=== PATIENT | male | born 1950 | race Caucasian/White ===

== ENCOUNTER 2016-12-29 07:36 | Day surgery (SDC) | payer MEDICARE, OTHER ==
--- NOTE | ~2016-12-29 | EGD ---
EGD REPORT [facility] [address] [place]. [address] NAME: FRANCISCO JAVIER RIVAS DC : 50 STATUS : REG [facility]#: [id number] AGE: 66 ADM/REG DATE : 12/29/16 MR#: [id number] REPORT SERV DATE: 12/29/16 DICTATED BY: CHI MATTHEWS DATE: 12/29/16 REPORT STATUS : Draft [facility]ANS[facility]ED [facility]: [facility] DATE: 12/29/16 Endoscopy Center Patient Name: Francisco Javier Rivas Date of : 1950 Attending MD: CHI MATTHEWS, Procedure Date No Time: 12/29/2016 Procedure: Colonoscopy Indications: Screening for colorectal malignant neoplasm Referring MD: CHERIE IRAHETA MD Medicines: Monitored Anesthesia Care Complications: No immediate complications. Estimated blood loss: None. Procedure: Pre-Anesthesia Assessment: - ASA Grade Assessment: II - A patient with mild systemic disease. After I obtained informed consent, the scope was passed under direct vision. Throughout the procedure, the patient's blood pressure, pulse, and oxygen saturations were monitored continuously. The CF [id number] was introduced through the anus and advanced to the cecum, identified by appendiceal orifice and ileocecal valve. The colonoscopy was performed without difficulty. The patient tolerated the procedure well. The quality of the bowel preparation was good. Findings: The perianal and digital rectal examinations were normal. A sessile polyp was found in the transverse colon. The polyp was 3 mm in size. The polyp was removed with a cold biopsy forceps. Resection and retrieval were complete. Verification of patient identification for the specimen was done. Estimated blood loss was minimal. A few small-mouthed diverticula were found in the sigmoid colon. Internal hemorrhoids were found during retroflexion and were Grade II (internal hemorrhoids that prolapse but reduce spontaneously). The exam was otherwise without abnormality on direct and retroflexion views. Impression: - One 3 mm polyp in the transverse colon. Resected and retrieved. - Diverticulosis in the sigmoid colon. - Internal hemorrhoids. - The examination was otherwise normal on direct and retroflexion views. Recommendation: - Patient has a contact number available for emergencies. The signs and symptoms of potential delayed EGD REPORT [address] [place]. [address] NAME: FRANCISCO JAVIER RIVAS HORTENCIA : 50 STATUS : REG [facility] PAT#: [id number] AGE: 66 ADM/REG DATE : 12/29/16 MR#: [id number] REPORT SERV DATE: 12/29/16 DICTATED BY: CHI MATTHEWS DATE: 12/29/16 REPORT STATUS : Draft TRANSCRIBED BY: [facility] DATE: 12/29/16 complications were discussed with the patient. Return to normal activities tomorrow. Written discharge instructions were provided to the patient. - Return to previous diet. - Continue present medications. - Await pathology results. - Repeat colonoscopy for surveillance based on pathology results. Procedure Code(s): --- Professional --- 00168, Colonoscopy, flexible, proximal to splenic flexure; with biopsy, single or multiple Diagnosis Code(s): --- Professional --- D12.3, Benign neoplasm of transverse colon K64.1, Second degree hemorrhoids K57.30, Diverticulosis of large intestine without perforation or abscess without bleeding Z12.11, Encounter for screening for malignant neoplasm of colon CPT copyright 2013 [employer]. All rights reserved. The codes documented in this report are preliminary and upon resident director review may be revised to meet current compliance requirements. CHI MATTHEWS, 12/29/2016 9:32 AM Number of Addenda: 0 Note Initiated On: 12/29/2016 8:29 AM Scope Withdrawal Time 0 hours 9 minutes 13 seconds [id number] [id number]
--- NOTE | ~2016-12-29 | EGD ---
EGD REPORT [facility] [address] [place]. [address] NAME: FRANCISCO JAVIER RIVAS DC : 50 STATUS : REG [facility]#: [id number] AGE: 66 ADM/REG DATE : 12/29/16 MR#: [id number] REPORT SERV DATE: 12/29/16 DICTATED BY: CHI MATTHEWS DATE: 12/29/16 REPORT STATUS : Draft TRANSCRIBED BY: [facility] DATE: 12/29/16 Endoscopy Center Patient Name: Francisco Javier Rivas Date of : 1950 Attending MD: CHI MATTHEWS, Procedure Date No Time: 12/29/2016 Procedure: Upper EUS Indications: Suspected solid pancreatic neoplasm Referring MD: CHERIE IRAHETA MD Medicines: Monitored Anesthesia Care Complications: No immediate complications. Estimated blood loss: None. Procedure: Pre-Anesthesia Assessment: - ASA Grade Assessment: II - A patient with mild systemic disease. After obtaining informed consent, the endoscope was passed under direct vision. Throughout the procedure, the patient's blood pressure, pulse, and oxygen saturations were monitored continuously. The GIF [id number] was introduced through the mouth, and advanced to the second part of duodenum. The Endoscope was introduced through the and advanced to the. After obtaining informed consent, the endoscope was passed under direct vision. Throughout the procedure, the patient's blood pressure, pulse, and oxygen saturations were monitored continuously.The upper GI endoscopy was accomplished without difficulty. The patient tolerated the procedure well. Findings: Endoscopic Finding : The examined esophagus was endoscopically normal. Patchy moderate inflammation characterized by erosions and erythema was found in the entire examined stomach. Biopsies were taken with a cold forceps for histology. Verification of patient identification for the specimen was done. Estimated blood loss was minimal. The cardia and gastric fundus were normal on retroflexion. The examined duodenum was normal. Biopsies were taken with a cold forceps for histology. Verification of patient identification for the specimen was done. Estimated blood loss was minimal. Endosonographic Finding : Pancreatic parenchymal abnormalities were noted in the entire pancreas. These consisted of lobularity. The pancreatic duct had a normal endosonographic appearance in the entire pancreas. The pancreatic duct measured up to 2 mm in diameter. There was no sign of significant endosonographic abnormality in the EGD REPORT [address] [address] NAME: FRANCISCO JAVIER RIVAS HORTENCIA : 50 STATUS : REG [facility] PAT#: [id number] AGE: 66 ADM/REG DATE : 12/29/16 MR#: [id number] REPORT SERV DATE: 12/29/16 DICTATED BY: CHI MATTHEWS DATE: 12/29/16 REPORT STATUS : Draft TRANSCRIBED BY: [employer] DATE: 12/29/16 common bile duct. Endosonographic imaging of the pancreas showed no cyst/pseudocyst and no mass. There was no sign of significant endosonographic abnormality in the examined duodenum. Endosonographic images of the stomach were unremarkable. There was no sign of significant endosonographic abnormality in the esophagus. Impression: - Normal esophagus. - Gastritis. Biopsied. - Normal examined duodenum. Biopsied. - Pancreatic parenchymal abnormalities consisting of lobularity were noted in the entire pancreas. - The pancreatic duct had a normal endosonographic appearance in the entire pancreas. The pancreatic duct measured up to 2 mm in diameter. - There was no sign of significant pathology in the common bile duct. - There was no sign of significant pathology in the examined duodenum. - Endosonographic images of the stomach were unremarkable. - There was no sign of significant pathology in the esophagus. Recommendation: - Return to previous diet. - Continue present medications. - Await path results. Procedure Code(s): --- Professional --- 95290, Esophagogastroduodenoscopy, flexible, transoral; with endoscopic ultrasound examination, including the esophagus, stomach, and either the duodenum or a surgically altered stomach where the jejunum is examined distal to the anastomosis Diagnosis Code(s): --- Professional --- K29.70, Gastritis, unspecified, without bleeding K86.9, Disease of pancreas, unspecified CPT copyright 2013 [employer]. All rights reserved. The codes documented in this report are preliminary and upon room service runner review may be revised to meet current compliance requirements. Attending Participation: EGD REPORT [facility] [address] [address] NAME: FRNACISCO JAVIER RIVAS HORTENCIA : 50 STATUS : REG [facility] [place] PAT#: [id number] AGE: 66 ADM/REG DATE : 12/29/16 MR#: [id number] REPORT SERV DATE: 12/29/16 DICTATED BY: CHI MATTHEWS DATE: 12/29/16 REPORT STATUS : Draft TRANSCRIBED BY: [employer] DATE: 12/29/16 I personally performed the entire procedure. CHI MATTHEWS, 12/29/2016 9:35 AM Number of Addenda: 0 Note Initiated On: 12/29/2016 8:30 AM Scope Withdrawal Time 0 hours 0 minutes 0 seconds [id number] [id number]
[~2016-12-29 07:36] MED LIST: ADVIL PO; AMIT10 PO; MCZ125 PO
== END 2016-12-29 23:59 | disposition home or self-care (01) ==
LOC: DMU 07:36
PROVIDERS: Internal Medicine Gastroenterology
PROC: 0DB98ZX Excision of Duodenum, Via Natural or Artificial Opening Endoscopic, Diagnostic (ICD-10-PCS; 2016-12-29)
PROC: 0DBL8ZZ Excision of Transverse Colon, Via Natural or Artificial Opening Endoscopic (ICD-10-PCS; 2016-12-29)
PROC: 0DJ08ZZ Inspection of Upper Intestinal Tract, Via Natural or Artificial Opening Endoscopic (ICD-10-PCS; principal; 2016-12-29 09:00)
PROC: 0DB68ZX Excision of Stomach, Via Natural or Artificial Opening Endoscopic, Diagnostic (ICD-10-PCS; 2016-12-29 09:00)
DX: Z12.11 Encounter for screening for malignant neoplasm of colon (principal); D12.3 Benign neoplasm of transverse colon; K29.50 Unspecified chronic gastritis without bleeding; K86.9 Disease of pancreas, unspecified; K57.30 Diverticulosis of large intestine without perforation or abscess without bleeding; K64.1 Second degree hemorrhoids; K22.4 Dyskinesia of esophagus; Z88.2 Allergy status to sulfonamides; Z90.49 Acquired absence of other specified parts of digestive tract; Z79.899 Other long term (current) drug therapy; Z98.890 Other specified postprocedural states
CPT/HCPCS: 88305; 88342; C1725

== ENCOUNTER 2017-01-09 15:23 | Inpatient (IN) | payer MEDICARE, OTHER ==
--- NOTE | ~2017-01-09 | OP ---
Record Of Operation [facility] [address] [place]. [address] NAME: FRANCISCO JAVIER RIVAS : [birth year] STATUS : ADM IN [facility]#: [id number] AGE: 66 ADM/REG DATE : 01/09/17 MR#: [id number] REPORT SERV DATE: 01/15/17 DICTATED BY: ALEXIA SHELBY DATE: 01/13/17 REPORT STATUS : Draft TRANSCRIBED BY: ELLEN DATE: 01/13/17 DATE OF PROCEDURE: 01/13/2017 OPERATION COMPLETED: Extraction of tooth #30. PREOPERATIVE DIAGNOSIS: Periodontal disease and periapical pathology. POSTOPERATIVE DIAGNOSIS: Periodontal disease and periapical pathology. ANESTHESIA: MAC anesthesia with local. SURGICAL PROCEDURE: the patient was taken to the operating room, where successful general anesthesia was induced via MAC IV sedation. We started the procedure by injecting the surgical site with 2% Xylocaine with Epinephrine and 4% Septocaine with epinephrine. This was to larriman helper in comfort during the procedure and postoperative discomfort when the patient was awake. The attention was directed to tooth #30 in the lower right mandible, where a #9 Molt periosteal elevator was used to reflect the gingival attachment to tooth #30. Due to the bone loss and periodontal disease in the furcation of the tooth, this tooth was easily removed with the cowhorn forceps. No sutures were necessary for the mucosa. With that in mind, the previously placed pharyngeal pack was removed and the posterior pharynx was suctioned and noted to be free of debris. The patient was then awakened and taken to the recovery room. JIA/ELLEN Alexia Shelby D.D.S. / [id number] CC: DO Millicent Chang M.D.
--- NOTE | ~2017-01-09 | TEE ---
Transesophageal Echocardiogram [facility] [address] [place]. [address] NAME: FRANCISCO JAVIER RIVAS : [birth year] STATUS : ADM IN PAT#: [id number] AGE: 66 ADM/REG DATE : 01/09/17 MR#: [id number] REPORT SERV DATE: 01/11/17 DICTATED BY: RYAN MARIEE DATE: 01/11/17 REPORT STATUS : Draft TRANSCRIBED BY: MODL DATE: 01/11/17 This is a 66-year-old gentleman with strep bacteremia for evaluation of endocarditis. Abnormal transthoracic echo with mitral valve pathology also noted. The risks and benefits of SUAD explained to the patient. He agreed to proceed. The patient was sedated with propofol per Anesthesia. He was intubated without difficulties. Vital signs were closely monitored during procedure and remained stable. FINDINGS: 1. Mobile complex echodensity in the left atrium up to 1 cm in the long axis, which is attached to the root of anterior mitral valve leaflet resembling vegetation noted. 2. Sclerotic diseased posterior mitral valve leaflet prolapsing to the left atrium with what looks like to be unsupported P2 segment. Due to the echo bright density, it may represent older process. There is moderate mitral valve regurgitation. There is a predominantly anteriorly directed jet. No reversal. There is also a separate jet of mitral valve regurgitation noted. Mobile echodensity on disease P2 segment vegetation cannot be excluded. Multiple images obtained including 3D. Clearly, the freely mobile complex echodensity in the root of the anterior mitral valve leaflet is acute or subacute and represents likely vegetation. 3. Normal LV size with normal systolic function. Estimated ejection fraction 50%. 4. Normal RV size and systolic function. 5. Aortic valve opens adequately. 6. There is a small echodensity attached to the right aortic cusp likely representing Lambl excrescence, but early sign of vegetation cannot be excluded. There is mild aortic valve regurgitation. 7. Tricuspid valve opens adequately. Trace tricuspid valve regurgitation. No obvious mobile echodensity identified. 8. Pulmonary valve opens adequately without significant regurgitation. 9. No evidence of left atrial or left atrial appendage thrombus. Normal left atrial appendage outflow velocities. 10.Normally connected pulmonary veins. 11.No evidence of pericardial effusion. CONCLUSION: 1. COMPLEX MOBILE ECHODENSITY MEASURING UP TO 1 CM IN THE LONG AXIS AT THE ROOT OF ANTERIOR MITRAL VALVE LEAFLETS ON THE ATRIAL SIDE RESEMBLING VEGETATION. 2. SEVERELY DISEASED PROLAPSING POSTERIOR MITRAL VALVE LEAFLET WITH UNSUPPORTED P2 SEGMENT. MOBILE ECHODENSITY ON THE DISEASED P2 SEGMENT CANNOT BE EXCLUDED. THERE IS MODERATE MITRAL VALVE REGURGITATION WITH ECCENTRIC JET PREDOMINANTLY ANTERIORLY DIRECTED WITHOUT SIGNS OF REVERSAL. 3. NORMAL LEFT VENTRICULAR SIZE AND SYSTOLIC FUNCTION. 4. VERY SMALL ECHODENSITY ON THE RIGHT AORTIC CORONARY CUSP, POSSIBLY RESEMBLING LAMBL EXCRESCENCE, BUT EARLY VEGETATION CANNOT BE EXCLUDED WITH MILD AORTIC VALVE REGURGITATION. 5. FINDINGS COMMUNICATED TO DR. HERNANDEZ. Transesophageal Echocardiogram [address] [address] NAME: FRANCISCO JAVIER RIVAS : 50 STATUS : [facility]M [facility]#: [id number] AGE: 66 ADM/REG DATE : 01/09/17 MR#: [id number] REPORT SERV DATE: 01/11/17 DICTATED BY: RYAN MARIEE DATE: 01/11/17 REPORT STATUS : Draft TRANSCRIBED BY: ELLEN DATE: 01/11/17 DIXIE/ELLEN Ryan Mariee M.D. / [id number] CC: DO Millicent Chang M.D.
--- NOTE | ~2017-01-09 | CN ---
Consultation Report [facility] [address] [place]. [address] NAME: FRANCISCO JAVIER RIVSA : 50 STATUS : ADM IN PAT#: [id number] AGE: 66 ADM/REG DATE : 01/09/17 MR#: [id number] REPORT SERV DATE: 01/11/17 DICTATED BY: ROSCOE CASTRO DATE: 01/11/17 REPORT STATUS : Draft TRANSCRIBED BY: MODKesha DATE: 01/11/17 DATE OF CONSULTATION: REASON FOR CONSULTATION: Endocarditis. 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 Upon discussing with the patient, he tells me that in 2015 he had a 5-month stretch of coughing of unclear etiology that eventually stopped but then restarted in September. He felt like a trigger point in his throat, sometimes irritated by piece of food. He would cough so hard that he would vomit sometimes. He was referred to the [facility] where he was recommended Elavil for esophageal spasms. He also lost weight over the last several months. Initially, he noticed no taste for certain meats like chicken and beef and then no taste for bread. He fractured a tooth at one point and he thinks it got infected. His dentist, Dr. Feliciano, gave him a round of azithromycin like a Z-Sesar in early November and then again just before this admission. He was told he needs a root canal done, but that could not be scheduled until the end of January. He has had fatigue, but no shortness of breath. No body swelling. He was noted to have anemia and was referred to GI and audiovisual librarian. A CT scan showed some dilatation of the pancreatic duct. So, on the 12/29, he had EGD and colonoscopy. EGD included pancreatic biopsy. There is some evidence of gastritis and maybe some lobularity of the pancreas, but the pancreatic duct looked normal by ultrasound. The colonoscopy showed internal hemorrhoids and a polyp. He also had some other lab work including iron studies and some malignancy markers. He thinks he has had low-grade fever for several weeks in the range of 99.9 and 100. He reports no recent injections or skin lesions. No rashes. No wounds. He has no shortness of breath. He does have problems with constipation. He went to the emergency room initially on the 01/07 and blood cultures were done. When they came positive for gram-positive cocci, the patient was called back and was admitted two days ago. Repeat blood cultures on the also are positive, at least one of them is. The Lab tells the preliminary data indicated this is a Streptococcus viridans, but the antibiogram is not back. The patient was started on vancomycin and Rocephin. A transthoracic echocardiogram suggested a mitral valve vegetation and eccentric mitral regurgitation, so today, he had a transesophageal echocardiogram. The preliminary report indicates 1 cm mobile echodensity in the left atrium in close proximity to anterior mitral valve leaflet that resembles a vegetation. There is also severely sclerotic posterior mitral valve leaflet and moderate eccentric mitral regurgitation. The patient tells me that Dr. Downey, his PCP, thought he had mitral valve prolapse, but he thinks that was based on auscultation. Also while here in the hospital, he had a CT scan of the brain without contrast that showed maybe some old vascular insult, and CT of the chest, abdomen, and jaws with contrast. There was no obvious dental infection. There may be some old splenic infarcts. 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 Consultation Report [address] [place]. [address] NAME: FRANCISCO JAVIER RIVAS : 50 STATUS : ADM IN [facility]#: [id number] AGE: 66 ADM/REG DATE : 01/09/17 MR#: [id number] REPORT SERV DATE: 01/11/17 DICTATED BY: ROSCOE CASTRO DATE: 01/11/17 REPORT STATUS : Draft TRANSCRIBED BY: MODKesha DATE: 01/11/17 The patient has been afebrile here. Lab work shows a creatinine of 0.5, WBC is 6, hemoglobin 9, platelets 280. Liver enzymes not elevated. CEA and CPK not elevated. Influenza screen negative. Pneumococcal and Legionella antigen negative. ID consult for antibiotics. I discussed with Dr. Castro, Cardiology, who feels no immediate valvular surgery is needed. PAST MEDICAL HISTORY: As I mentioned above plus cholecystectomy right inguinal hernia surgery, remote left hand surgery. He has not received influenza or pneumococcal vaccines. He reports no history of TB, HIV, hepatitis, or STDs. FAMILY HISTORY: Hypertension. ALLERGIES: SULFA CAUSES ITCHING. SOCIAL HISTORY: He works as a chiropractor. He does not smoke. He does not use IV drugs. MEDICATIONS ON ADMISSION: Elavil, azithromycin, chlorpheniramine with phenylephrine with acetaminophen p.r.n. tablets, omeprazole p.r.n. PHYSICAL EXAMINATION: GENERAL: He is alert, awake. HEENT: I did not see oral mucosal lesions. Sclerae are white. Hands and feet without signs of emboli. He reports no acute spine or joint pains. No obvious joint swelling. LUNGS: Clear to auscultation. No wheezes, rhonchi, or rales. HEART: Regular rhythm with a very loud systolic murmur about 4/6 at the precordial area and about 2 to 3/6 at the right sternal border. Also loud at the left axillary area. ABDOMEN: Soft, nontender to palpation. Extremities: Lower legs without edema. INVESTIGATIONS: As mentioned above. 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 Antibiotic-garg, we will follow up antibiogram to see if this is sensitive to penicillin or ceftriaxone. A typical treatment would include 4 weeks course of penicillin or ceftriaxone or two weeks course of penicillin or ceftriaxone plus synergistic gentamicin. Obviously, we need to make sure that his dental problems are dressed since that could be a source of infection and he will need close followup with Cardiology for the valvular function. I discussed the above with the patient. He had the opportunity to ask questions. VELIA/ELLEN Consultation Report [address] [place]. [address] NAME: FRANCISCO JAVIER RIVAS : 50 STATUS : ADM IN PAT#: [id number] AGE: 66 ADM/REG DATE : 01/09/17 MR#: [id number] REPORT SERV DATE: 01/11/17 DICTATED BY: ROSCOE CASTRO DATE: 01/11/17 REPORT STATUS : Draft TRANSCRIBED BY: ELLEN DATE: 01/11/17 Roscoe Castro M.D. / [id number] CC: DO Millicent Chang M.D.
--- NOTE | ~2017-01-09 | IDS ---
Interim Discharge Summary [facility] [address] [place]. [address] NAME: FRANCISCO JAVIER RIVAS : 50 STATUS : ADM IN PAT#: [id number] AGE: 66 ADM/REG DATE : 01/09/17 MR#: [id number] REPORT SERV DATE: 01/23/17 DICTATED BY: SERAFIN MERRITT DATE: 01/22/17 REPORT STATUS : Draft TRANSCRIBED BY: MODL DATE: 01/22/17 ADMISSION DATE: 01/09/2017 DISCHARGE DATE: DIAGNOSES: Diagnoses on this patient so far include the followin. Acute endocarditis and bacteremia with Streptococcus salivarius secondary to gingivitis and dental abscess unfortunately. The patient has been receiving IV Rocephin for this and today is day #13. ID is following and the plan is to complete a course of four weeks of IV Rocephin therapy on this patient. Hence, he has received a PICC line placement for this. 2. Mitral valve endocarditis and coronary artery disease which necessitated coronary artery bypass graft and also mitral valve replacement at the same time successfully on this patient, today is postop day #4. The patient is on anticoagulation with Coumadin as of now. 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 The patient also had problems like chronic diffuse esophageal spasm in the past, history of chronic gastritis, and history of colonic polyps which were benign in the past. BRIEF HOSPITAL COURSE: Please refer to my interim discharge summary dictated previous to this. Between then and now, the patient did extremely well after CABG and mitral valve replacement. This patient, however, complained of dizziness and instability of gait which has occurred in the recent past. For this, I obtained an MRI of the patient that shows old strokes in the left basal ganglia, right frontal lobe, and corpus callosum which may be partly responsible for this in addition to the acute endocarditis that the patient is having. In addition to this, the patient also is chronically malnourished as he has not been eating much at all for the last month or more given the fact that he had acute to subacute endocarditis at this time. The patient also had hallucinations when he came in, but I do not see any history of any psychiatric illness in this patient. Hence, the hallucinations were probably secondary to the sepsis and the bacteremia from the Streptococcus itself. However, given all these problems, the patient is being evaluated by Physical Therapy and Occupation Therapy, so he can be placed in inpatient rehab for some time before releasing him to go on back home. Another reason for this also is that he needs to complete his total of four weeks of IV Rocephin therapy through his PICC line. For all this, if the patient can be placed in an inpatient rehab of the patient's choice, later on the patient can be released to go on home. 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 The patient has a very supportive family and the discussion has been ongoing with him along with his and son also who are actively involved in the patient's care. This is my interim discharge summary and this patient will be followed by my colleague on 01/23/2017. Interim Discharge Summary [address] [address] NAME: FRANCISCO JAVIER RIVAS : 50 STATUS : ADM IN PAT#: [id number] AGE: 66 ADM/REG DATE : 01/09/17 MR#: [id number] REPORT SERV DATE: 01/23/17 DICTATED BY: SERAFIN MERRITT DATE: 01/22/17 REPORT STATUS : Draft TRANSCRIBED BY: ELLEN DATE: 01/22/17 DENNY/ELLEN Serafin Merritt M.D. / [id number] CC: Teresita Hernandez M.D.
--- NOTE | ~2017-01-09 | HP ---
History And Physical [address] [place]. [address] NAME: FRANCISCO JAVIER RIVAS : 50 STATUS : ADM IN [facility]#: [id number] AGE: 66 ADM/REG DATE : 01/09/17 MR#: [id number] REPORT SERV DATE: 01/09/17 DICTATED BY: KODY LOVE DATE: 01/09/17 REPORT STATUS : Draft TRANSCRIBED BY: MODL DATE: 01/09/17 DATE OF ADMISSION: 01/09/2017 REASON FOR ADMISSION: 2/[address] Downey' office, PCP. PRESS CUTTER: Dr. Hernandez. Saw Dr. Benton for an endoscopic ultrasound. HISTORY OF PRESENT ILLNESS: This is a pleasant 66-year-old male with known history of suspected clinical diffuse esophageal spasm causing recurrent cough per patient. Known history of gastritis, pancreatic lobularity seen via endoscopic ultrasound with a normal pancreatic biliary duct profile, known history of diverticulosis, 3 mm polyp in the transverse colon, this was resected and retrieved. Pathology just showed tubular adenoma without high-grade dysplasia. Known stomach biopsy antral fundic mucosa, moderate chronic focally active gastritis. No dysplasia or metaplasia. SURGICAL HISTORY: The patient with known surgical history of cholecystectomy, right inguinal hernia repair, and left hand surgery. The patient comes in to the ER on Sunday with being "incoherent", only lasted for a day. No fevers. No chills. No nausea. No vomiting or diarrhea. In fact, he is constipated, been so for several months. No chest pain. No chest pressure. No shortness of breath. Very mild very mild productive cough recently, started on 09/07. Dr. Downey sent the patient to Dr. Hernandez documented to have diffuse esophageal spasm. The patient was recently evaluated in September as well for having a right lower molar infection requiring a root canal, still holding off on the root canal, unclear reasons. The patient came into the ER. Apparent chest x-ray did not show any infiltrate. The patient was discharged, recent Z-Sesar, is now on day 2, has not noted any change in improvement, called here 2/2 bacteremia which shows gram-positive cocci in chains, possibly strep rule out. I am concerned about possible enterococci as well. Known to have a biopsy of the transverse colon. REVIEW OF SYSTEMS: Done, see HPI. Otherwise, negative. PAST MEDICAL HISTORY: See above. PAST SURGICAL HISTORY: See above. ALLERGIES: SULFA, ITCHING. HOME MEDICATIONS: See MAR. We will continue what is relevant. SOCIAL HISTORY: He is a practising chiropractor. No alcohol. No drug use. No asbestos History And Physical [address] [address] NAME: FRANCISCO JAVIER RIVAS : 50 STATUS : ADM IN [facility]#: [id number] AGE: 66 ADM/REG DATE : 01/09/17 MR#: [id number] REPORT SERV DATE: 01/09/17 DICTATED BY: KODY LOVE DATE: 01/09/17 REPORT STATUS : Draft TRANSCRIBED BY: ELLEN DATE: 01/09/17 exposure. No radioiodine exposure. No smoking exposure per the patient. FAMILY HISTORY: Hypertension in at least one parent. PHYSICAL EXAMINATION: OBJECTIVE: VITAL SIGNS: 116 pulse, 96% room air, 157/78 blood pressure, 98.1 temperature, and 18 respirations. General: No acute distress. HEENT: PERRLA. No scleral icterus. CARDIOVASCULAR: Regular rate and rhythm. No murmur. RESPIRATORY: Clear, but decreased breath sounds bibasilarly. ABDOMEN: nontender, nondistended. Positive bowel sounds. There were very hypoactive bowel sounds. EXTREMITIES: No edema. No ecchymosis. NEUROLOGIC: GCS 15. A and O x4/4. LABS: Are all pending. ASSESSMENT AND PLAN: 1. Sepsis. 2. Bacteremia 2/2. 3. Source is possibly pneumonia given recurrent cough versus right molar abscess, rule out infective endocarditis seeding. The patient is not especially toxic but yet has bacteremia with tooth infection. 4. Constipation times months. PLAN: We will go ahead and admit this patient. IV vancomycin, Rocephin after panculture. Stat creatinine, then we will give hopeful IV contrast. A CT maxillofacial, chest. Rule out retrocardiac pneumonia and abdomen and pelvis. Get a CA19-9 given the pancreatic lobularity concern. If I cannot find an overt source, we will ask for ID. We will look at the transthoracic. Index of suspicion is high for endocarditis. The patient has recurrent blood cultures being positive. We will consider possible SUAD with ID consult. Speech eval for this suspected dysphagia risk. Consult maxillofacial surgery. Possible root canal prospect. Place on Florastor to reduce the risk of C. diff. See rest of my orders. We will get a CT of the brain in case the patient has any septic embolus to the brain. All questions were answered. It took over 60 minutes to do. Reference Keypr and DEMANDIT. WST/MODL Kody Love DO History And Physical [address] [address] NAME: FRANCISCO JAVIER RIVAS : 50 STATUS : ADM IN PAT#: [id number] AGE: 66 ADM/REG DATE : 01/09/17 MR#: [id number] REPORT SERV DATE: 01/09/17 DICTATED BY: KODY LOVE DATE: 01/09/17 REPORT STATUS : Draft TRANSCRIBED BY: MODL DATE: 01/09/17 / [id number] CC: DO Millicent Chang M.D.
--- NOTE | ~2017-01-09 | CN ---
Consultation Report [facility] [address] [place]. [address] NAME: FRANCISCO JAVIER RIVAS : 50 STATUS : ADM IN [facility]#: [id number] AGE: 66 ADM/REG DATE : 01/09/17 MR#: [id number] REPORT SERV DATE: 01/10/17 DICTATED BY: NORBERT CASTRO DATE: 01/10/17 REPORT STATUS : Draft TRANSCRIBED BY: MODL DATE: 01/10/17 CARDIOLOGY CONSULTATION DATE OF CONSULTATION: INDICATION: Abnormal echo, bacteremia. 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, who has felt unwell for several months on confirming history with family. He has lost probably 30 pounds over the last three to four months. He has had some malaise, chronic cough, fatigue, and weakness. He was admitted with bacteremia after being seen in the emergency room with what was felt to be dehydration. He has 4/4 blood cultures positive for strep. He had an echocardiogram today that showed EF of 50% with a flail P2 segment and densities possibly consistent with mitral valve vegetations and the MR is highly eccentric and is possibly severe. The patient reports he is feeling better than on admission. He has not had syncope. No lalito shortness of breath or chest pain. No orthopnea or PND. No active heart failure symptoms. BNP on presentation was 69. PAST MEDICAL HISTORY: Chronic weight loss as described above. ALLERGIES: SULFA ANTIBIOTICS. PRESENT MEDICATIONS: Amitriptyline, Rocephin, subcu heparin, metoprolol tartrate, and vancomycin. SOCIAL HISTORY: No present smoking. FAMILY HISTORY: Reviewed. Notable for mother who had endocarditis. REVIEW OF SYSTEMS: As per the HPI. Otherwise, all other review of systems negative. PHYSICAL EXAMINATION: VITAL SIGNS: Blood pressure 115/70, pulse is 91, and respiratory rate is 18. GENERAL: Appears stated age, no distress. EYES: Sclerae anicteric, no arcus senilis. MOUTH: Oral mucosa moist, lips acyanotic. NECK: Jugular venous pressure normal, no carotid bruits. LUNGS: Clear to auscultation bilaterally, normal inspiratory effort. CARDIAC: Regular rhythm with a 3/6 systolic murmur at the apex consistent with mitral regurgitation. ABDOMEN: Soft, nondistended, nontender. EXTREMITIES: No edema. SKIN: Warm and dry. Consultation Report [facility] [facility] [address] [place]. [address] NAME: FRANCISCO JAVIER RIVAS : 50 STATUS : ADM IN PAT#: [id number] AGE: 66 ADM/REG DATE : 01/09/17 MR#: [id number] REPORT SERV DATE: 01/10/17 DICTATED BY: NORBERT CASTRO DATE: 01/10/17 REPORT STATUS : Draft TRANSCRIBED BY: MODL DATE: 01/10/17 NEURO/PSYCH: Alert and oriented, nonfocal, mood appropriate. LABORATORY AND DIAGNOSTIC STUDIES: Telemetry is sinus rhythm to sinus tachycardia. ECG from presentation was sinus tachycardia with inferior ST depression, otherwise diffuse upsloping ST elevation. IMPRESSIONS: Suspect bacterial endocarditis/infective endocarditis with mitral regurgitation, weight loss, malaise, possible vegetations, and bacteremia. ID evaluation is pending. The patient is currently on antibiotics. We will obtain SUAD to assess mitral valve, and the patient may need eventual mitral valve surgery. Discussed diagnosis with the patient and family in depth. Discussed SUAD procedure with the patient and family. All questions were answered. They are agreeable to proceeding. JHOANA/ELLEN Norbert Castro M.D. / [id number] CC: DO Millicent Chang M.D.
--- NOTE | ~2017-01-09 | CN ---
Consultation Report [facility] [address] [place]. [address] NAME: FRANCISCO JAVIER RIVAS : 50 STATUS : ADM IN PAT#: [id number] AGE: 66 ADM/REG DATE : 01/09/17 MR#: [id number] REPORT SERV DATE: 01/12/17 DICTATED BY: FRANK MCKEON DATE: 01/12/17 REPORT STATUS : Draft TRANSCRIBED BY: MODKesha DATE: 01/12/17 CONSULTATION REPORT DATE OF CONSULTATION: REASON FOR CONSULTATION: Mitral valve endocarditis, consideration for mitral valve replacement. CHIEF COMPLAINT: Fatigue, weakness, and cough. 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 He reports that in September, he had onset of dry nonproductive cough and some malaise, fatigue, and weight loss. He in fact, lost approximately 23 pounds from September until he weighed himself in October. He continued to lose weight and had increasing fatigued and went to see his primary care physician, Dr. Downey. He was found to have a mild anemia. He was referred for ENT, pulmonary, GI, and oncology evaluations. It was felt that, he might have a gastritis and esophageal spasm that was responsible for his cough, and/or possibly sinusitis with drainage or potentially cold-induced asthma. Most recently, he was driving and apparently became confused and his directed him to the hospital. He came to the ER with confusion, was found to have temperature elevation of 100.1, as well as dehydration. He was rehydrated, and as part of his diagnostic workup, had blood cultures drawn. He was discharged to home, and was called back to the hospital after two out two cultures were positive for gram- positive cocci. Ultimately, this was found to be Streptococcus species, and sensitivity is currently pending. He was hospitalized, underwent further evaluation with transthoracic and transesophageal echocardiography, which demonstrated a significant mobile vegetation in the left atrium that originated from the posterior leaflet of the mitral valve. There was posterior leaflet prolapse and moderate mitral valve regurgitation with a predominantly anteriorly directed jet. There was also a separate jet of mitral valve regurgitation noted. 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 The patient denies any family history of coronary disease, although mother had mitral valve replacement. He denies any history of hypertension, hyperlipidemia, prior heart problems, syncope, or near-syncope. He denies any chest discomfort such as pressure tightness or heaviness. Denies any neck, back, shoulder, arm discomfort. He initially denies any fevers or shaking chills, but his daughter reminds him that he did have shaking chills over a month ago, when she observed him at dinner time. He also had attributed these chills to his anemia. He reports that, he was in generally good health prior to September, but since then has had multiple issues including the fatigue, malaise, weight loss, fevers, chills, constipation and cough. PRIOR MEDICAL HISTORY: As above. Eczema, left scalp. Consultation Report [address] [place]. [address] NAME: FRANCISCO JAVIER RIVAS : 50 STATUS : ADM IN [facility]#: [id number] AGE: 66 ADM/REG DATE : 01/09/17 MR#: [id number] REPORT SERV DATE: 01/12/17 DICTATED BY: FRANK MCKEON DATE: 01/12/17 REPORT STATUS : Draft TRANSCRIBED BY: ELLEN DATE: 01/12/17 PRIOR SURGICAL HISTORY: Significant for cholecystectomy, right inguinal herniorrhaphy, and finger on left hand reattached after injury. ALLERGIES: HE HAS ITCHING WITH SULFA ANTIBIOTICS. MEDICATIONS: Include amitriptyline 10 mg p.o. at bedtime, azithromycin, Dristan cold tablets, and Prilosec 20 mg p.o. daily. 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 FAMILY HISTORY: Mother with mitral valve prolapse, hypertension. He does not know his father's history. REVIEW OF SYSTEMS: As above. He denies any history of easy bruising, free bleeding, strokes or TIAs, any history of heart problems other than recent discovery of mitral valve prolapse. No history of cancer. No history of abnormal bleeding. PHYSICAL EXAMINATION: GENERAL: He is a pleasant thin white male, in no acute distress. VITAL SIGNS: Blood pressure 126/80, temperature 97.1, pulse 103, respirations 18, saturation 97% on room air, height is 175.26 cm, weight 64.89 kg. HEENT: Normocephalic, atraumatic, thinning hair. Pupils are equal, round, reactive to light and accommodation, sclerae clear, conjunctivae pink. He wears glasses. Oral and buccal mucosa pink and moist, teeth in reasonable condition. Mallampati class 1 airway. NECK: Supple. No restricted range of motion. No carotid bruits, no jugular venous distention. CHEST: Clear to auscultation. No use of accessory muscles. No chest wall tenderness. No deformity. CV: Regular rate and rhythm, loud blowing mitral systolic murmur heard across the precordium, but heard best in the left fourth or fifth intercostal space, radiating to the left anterior axillary line laterally. He has palpable and symmetric central and peripheral pulses. No clubbing, cyanosis, or edema. ABDOMEN: Soft, scaphoid, nontender, with normoactive bowel sounds. No hepatosplenomegaly. /RECTAL: Declined. MUSCULOSKELETAL: No kyphoscoliosis. No asymmetry. NEUROLOGIC: He is alert, oriented, to day, date, place, and situation. His speech is clear and fluent and he has no focal deficits. MUSCULOSKELETAL: No kyphoscoliosis. No asymmetry. SKIN, HAIR, AND NAILS: No lesions, masses, or rashes. No splinter hemorrhages. No Osler's nodes or Janeway lesions seen. DATA: His EKG showing sinus rhythm, criteria for left ventricular hypertrophy. CT of the Consultation Report [address] [address] NAME: FRANCISCO JAVIER RIVAS : 50 STATUS : ADM IN [facility]#: [id number] AGE: 66 ADM/REG DATE : 01/09/17 MR#: [id number] REPORT SERV DATE: 01/12/17 DICTATED BY: FRANK MCKEON DATE: 01/12/17 REPORT STATUS : Draft TRANSCRIBED BY: ELLEN DATE: 01/12/17 face, chest, and abdomen shows no focus of infection. CT brain showed atrophy, old vascular ischemic changes, and no acute pathology. CURRENT LABORATORY DATA: Sodium is 140, potassium 3.9, chloride 102, CO2 of 28, BUN 10, creatinine 0.61. Blood cultures as mentioned above. His Vanco trough is 18.1. CBC shows WBC 6.1, hemoglobin 10.5 g, hematocrit 32%, platelets 300,000. IMPRESSION: Mitral valve endocarditis, strep species. We will need mitral valve replacement at this episode of care. In preparation for surgery, would favor diagnostic arteriogram of the coronaries to rule out any coronary artery disease that may also need to be addressed. We talked with the patient about possible mitral valve replacement, indications, benefits, usual perioperative course, and risks, which include but are not limited to things such as bleeding, need for blood or blood product transfusion and their attendant risks, damage to the kidneys including kidney failure and dialysis, damage to the liver or the lungs, heart attack, need for pacemaker, abnormal heart rhythm, heart attack, stroke, and even . We talked about the potential for reinfection of the prosthetic valve. Using Society of Thoracic Surgeons database, risk prediction revealed mortality risk predicted at 2.455%, morbidity or mortality of 21.75% for mitral valve replacement in this patient with endocarditis. This was shared with the patient and his daughter. We will ask Cardiology for assistance in performing diagnostic arteriogram and likely plan valve replacement next week. We appreciate the opportunity to participate in this gentleman's care. DICTATED BY: Janessa Watters/SHAKAL Frank Mckeon M.D. / [id number] CC: DO Millicent Chang M.D.
--- NOTE | ~2017-01-09 | DS ---
Discharge Summary [address] [place]. [address] NAME: FRANCISCO JAVIER RIVAS : 50 STATUS : ADM IN [facility]#: [id number] AGE: 66 ADM/REG DATE : 01/09/17 MR#: [id number] REPORT SERV DATE: 01/23/17 DICTATED BY: CIERRA VELÁZQUEZ DATE: 01/23/17 REPORT STATUS : Draft TRANSCRIBED BY: MODL DATE: 01/23/17 ADMISSION DATE: 01/09/2017 DISCHARGE DATE: Total days of hospitalization from 01/09/2017 to 01/23/2017. Please refer to history of present illness dictated by Dr. Sánchez on 01/09/2017 as well as refer to interim discharge summary dictated by Dr. Mariola Jones on 01/19/2017 and also on 01/22/2017. I only saw the patient on 01/23/2017 on the day of discharge. DIAGNOSES ON DISCHARGE: 1. Subacute to acute endocarditis and streptococcal bacteremia secondary to gingivitis and dental abscess. Status post urgent mitral valve replacement, status post coronary artery bypass grafting x4 per Dr. Mckeon on 01/17/2017. 2. Gingivitis, status post IV antibiotics. Continue antibiotics for 23 more days per Infectious Disease, Dr. Garland. 3. MRI of the brain done on 01/22/2017 showed old strokes, no evidence of any new stroke. 4. Normal carotid ultrasound. CONSULTANTS ON THE CASE: 1. Cardiothoracic surgeon, Dr. Mckeon. 2. Infectious Disease, Dr. Roscoe Garland. 3. Cardiology, Dr. Norbert Castro. SURGERY: 1. Mitral valve replacement and coronary artery bypass grafting done by Dr. Mckeon on 01/17/2017. 2. Right molar abscess, status post extraction. For the details of hospitalization, please refer to the history of present illness dictated by Dr. Mariola Jones on 01/19/2017 and 01/22/2017. The patient was doing well and he was ready to go to rehabilitation at [facility] because of the chronic gait problems, and he had an MRI on the brain, which showed evidence of old left basal ganglia, old right frontal and mid corpus callosal and right watershed infarction indicating small vessel ischemic attacks in the past. There was no any mass effect. Bilateral carotid ultrasound did not show any carotid disease. The patient was doing well and Dr. Roscoe Garland recommended the patient to continue antibiotics, intravenous Rocephin for 23 more days, as well as the patient has scheduled appointment with Dr. Castro of Cardiology on 02/13/2017 at 0815 and with Magen Ames on 03/08/2017 at 0130. Also, he is going to follow up with Dr. Garland in three weeks. DISCHARGE MEDICATIONS: Include amitriptyline 30 mg at bedtime, vitamin C 1000 mg daily, aspirin 81 mg daily, Lipitor 40 mg daily, ceftriaxone 2 g IV daily for 23 days. Discharge Summary [address] [address] NAME: FRANCISCO JAVIER RIVAS : 50 STATUS : ADM IN [facility]#: [id number] AGE: 66 ADM/REG DATE : 01/09/17 MR#: [id number] REPORT SERV DATE: 01/23/17 DICTATED BY: CIERRA VELÁZQUEZ DATE: 01/23/17 REPORT STATUS : Draft TRANSCRIBED BY: ELLEN DATE: 01/23/17 Famotidine 20 mg twice a day, ferrous sulfate 300 b.i.d., 1 g p.o. twice a day metoprolol 12.5 p.o. b.i.d., MiraLAX two packets daily, Florastor one capsule twice a day, Coumadin 2.5 mg daily, zinc sulfate 220 daily, Tylenol 650 p.o. q.4 hours p.r.n. Laxatives as needed. PT/INR on Sunday, Sunday, Sunday. to be checked. I spent 45 minutes on discharge. The patient was discharged in stable condition. Everything was discussed with the patient and his . /MODL Cierra Velázquez M.D. / [id number] CC: Cierra Velázquez M.D. Teresita Neves M.D. Gregory Keith Bruce, M.D. James Zellner, M.D.
--- NOTE | ~2017-01-09 | OP ---
Record Of Operation [facility] [address] [place]. [address] NAME: FRANCISCO JAVIER RIVAS : 50 STATUS : ADM IN [facility]#: [id number] AGE: 66 ADM/REG DATE : 01/09/17 MR#: [id number] REPORT SERV DATE: 01/18/17 DICTATED BY: FRANK MCKEON DATE: 01/17/17 REPORT STATUS : Draft TRANSCRIBED BY: MODL DATE: 01/17/17 DATE OF PROCEDURE: 01/17/2017 PREOPERATIVE DIAGNOSES: 1. Mitral valve endocarditis with mitral insufficiency. 2. Coronary artery disease. 3. Bacteremia. 4. Right molar abscess, status post extraction. 5. History of eczema. POSTOPERATIVE DIAGNOSES: 1. Mitral valve endocarditis with mitral insufficiency. 2. Coronary artery disease. 3. Bacteremia. 4. Right molar abscess, status post extraction. 5. History of eczema. PROCEDURE PERFORMED: 1. Urgent mitral valve replacement using a 33-mm pericardial valve (Magna Ease) and chordal-sparing technique. 2. Coronary artery bypass grafting x4, left internal mammary artery placed to left anterior descending, reverse saphenous vein graft placed to the first obtuse marginal, reverse saphenous vein graft placed to the posterior descending artery, and reverse saphenous vein graft placed to the posterolateral branch vessel. 3. Endoscopic vein harvest, saphenous vein from right thigh. 4. Transesophageal echocardiography. 5. Visual inspection and culture of aortic valve. SURGEON: Frank Mckeon M.D. ASSISTANT WOMEN'S ROWING COACH: Keara Wynn and Franki Fine. ANESTHESIA: General with Dr. Miller. CAN FILLING AND CLOSING MACHINE TENDER: Nikkie Caruso M.D. 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 He has had about a 3-month history of fatigue, malaise, weight loss, and nonproductive cough. Mild temperature but no chills and no discrete fever. He went to see Dr. Downey, his primary care physician. He was found to be mildly anemic and was referred for evaluation. During his evaluation, he had an episode of confusion while driving his car with his , and he was taken by his to the emergency room. There his fever was 100.1, and he was found to be mildly dehydrated. During his evaluation, he underwent routine blood cultures and was discharged to home. After being discharged to home, the patient was called shortly thereafter, and it was found that after 24 hours, his blood cultures were both positive for gram-positive cocci. This later grew out Streptococcus salivarius. The patient was Record Of [address] [place]. [address] NAME: FRANCISCO JAVIER RIVAS : 50 STATUS : ADM IN PAT#: [id number] AGE: 66 ADM/REG DATE : 01/09/17 MR#: [id number] REPORT SERV DATE: 01/18/17 DICTATED BY: FRANK MCKEON DATE: 01/17/17 REPORT STATUS : Draft TRANSCRIBED BY: MODKesha DATE: 01/17/17 admitted directly to the hospital and underwent consultation with Infectious Disease. He also had a consultation with the oral surgeons after he was found to have a broken tooth. This later underwent extraction. He had an echocardiogram that demonstrated significant mitral valve insufficiency with vegetations of the mitral valve. The patient had a followup SUAD that confirmed these findings along with a possible vegetation or excrescence on the tip of one of the leaflets of the aortic valve. We were asked to see the patient for possible consideration for valve replacement for endocarditis. The patient underwent cardiac catheterization which also demonstrated severe three-vessel coronary disease. We talked with the patient and his regarding possible mitral valve replacement along with inspection of the aortic valve and possibly aortic valve replacement along with coronary artery bypass. The patient's ventricular function was good with an EF of greater than 50%. After discussing the operations, indication, and risks, they wished to proceed. Preoperatively predicted mortality by STS scoring was 2.5% morbidity, mortality was greater than 20%, and this was shared with the family. FINDINGS AT OPERATION: 1. Cross-clamp time of 131, total pump time of 149 minutes. 2. The LAD was a 1.75-mm heavily diseased vessel. A 2.5-mm SMITH was anastomosed to it with good runoff. 3. The first obtuse marginal was 1.75 mm, moderately diseased. A 3.5-mm RSVG was anastomosed to it with good runoff. 4. The posterior descending artery was 1.75 mm and heavily diseased. A 3.5-mm RSVG was anastomosed to it with good runoff. Unfortunately, this vein graft was not long enough to reach the ascending aorta. Therefore, it was piggybacked into the side of the vein graft going to the posterolateral branch vessel. 5. The posterolateral branch vessel was 1.5 mm and mildly diseased. A 3.5-mm RSVG was anastomosed to it with good runoff. 6. The vein quality was good and all grafts had good Doppler signal at the end of the case. 7. The mitral valve had a flail P2 leaflet. There was vegetation seen on the leaflet and on the chords extending down to the papillary muscle. These were all excised along with portions of P1 and P2 that were nearby and felt to be possibly contaminated. Finally, along the anterior septal wall above the anterior leaflet, there was excrescence on the wall of the atrium, and this was excised and sent for cultures. The anterior leaf of the mitral valve did appear to have areas of friability and possible vegetation and the anterior leaflet was excised. We preserved the A2 chords. 8. The mitral valve was replaced using a 33-mm Magna Ease, the pericardial valve using chordal-sparing technique. 16 Cor-Knots were utilized. 9. We did ligate and amputate the left atrial appendage. 10.Because of concern about the aortic valve findings on SUAD, we did open the aorta and visually inspected the aortic valve. The excrescences of the Lambl's along the nodules of Arantius were noted. In an area of one excrescence some of the tissue was excised, and this was sent for Gram stain that returned negative for bacteria. The area was then closed, the aortic valve was not replaced. The area of question was a noncoronary cusp. 11.SUAD demonstrated good ventricular function at the end of the operation. The mitral valve prosthesis was well seated without perivalvular leak. There was trace aortic Record Of Operation [address] [address] NAME: FRANCISCO JAVIER RIVAS : 50 STATUS : ADM IN PAT#: [id number] AGE: 66 ADM/REG DATE : 01/09/17 MR#: [id number] REPORT SERV DATE: 01/18/17 DICTATED BY: FRANK MCKEON DATE: 01/17/17 REPORT STATUS : Draft TRANSCRIBED BY: MODL DATE: 01/17/17 valve insufficiency. PATHOLOGIC SPECIMENS: Include left atrial appendage, the mitral valve leaflet portions, and chords of the mitral valve, primarily the P2 chords. Cultures were also sent of P2 chords and a culture of the wall of the left atrium and the areas of excrescence along the noncoronary cusp of the aortic valve. DESCRIPTION OF PROCEDURE: The patient was brought to the operating suite where general anesthesia was induced and airway secured with an endotracheal tube. Lines secured by Anesthesia. A Arizmendi catheter was placed. The patient's chest, abdomen, groin, and legs were prepped with Hibiclens and ChloraPrep and draped with Ioban sterile sheets. A SUAD probe was placed by Dr. Miller and examination carried out in my attendance. It was then that we decided to go ahead and during the operation visually inspect the aortic valve and culture if suspicious. The saphenous vein was harvested from the right thigh using an endoscopic technique. Briefly, the vein was cut directly down upon through a 2-cm incision placed in the medial aspect of the right knee. Then, using VasoView trocars, the vessel was dissected from the surrounding subcutaneous tissue and fat. The side branches were identified, ligated, and divided with cautery. Once adequate length of vein had been dissected, a counter incision made up in the groin where the vein was ligated and divided and brought out through the knee incision. The vein quality was good. The leg was made hemostatic and closed in layers with absorbable suture and skin closed in a subcuticular fashion. Next, a midline sternal incision made with a sternal saw. The left hemithorax was elevated and the endothoracic fascia was incised. The side branches of the BILLY were clipped and divided. Once the BILLY was completely dissected, the patient was anticoagulated with heparin and chest tube placed in the left pleural cavity. The BILLY was clipped and divided distally. There was good flow through the BILLY and its pedicle was infiltrated with papaverine. Then, the Tyshawn retractor was placed in the pericardium over from the innominate vein. The diaphragm was T'd and tacked to the side of the chest wall. Pursestring sutures were placed and cannulation was carried out in a routine manner. A retrograde cardioplegia cannula was placed in the coronary sinus. When all was in readiness, the patient was placed on cardiopulmonary bypass. The distal targets were then marked out on the heart as described in the findings. The aorta was crossclamped and an initial dose of cold blood cardioplegia solution was given in a combination of antegrade and retrograde fashion and then in a retrograde manner at 20- to 25 minute intervals during the remainder of the cross-clamp period. Following the first dose of cardioplegia, the heart was gently retracted towards the surgeon. The left atrial appendage was grasped. It was ligated and amputated at its base using thoracoscopic stapler and a 60-mm purple staple load. The heart support was placed, and we turned our attention towards the bypass grafts. The heart was first positioned for the posterolateral branch graft. An arteriotomy was made, Record Of Operation [facility] [address] [place]. [address] NAME: FRANCISCO JAVIER RIVAS : 50 STATUS : ADM IN PAT#: [id number] AGE: 66 ADM/REG DATE : 01/09/17 MR#: [id number] REPORT SERV DATE: 01/18/17 DICTATED BY: FRANK MCKEON DATE: 01/17/17 REPORT STATUS : Draft TRANSCRIBED BY: ELLEN DATE: 01/17/17 the vein graft was trimmed and anastomosed to it with 7-0 Prolene. The vein graft was then measured to the right side of the ascending aorta where it was divided. We then positioned the heart for the obtuse marginal graft. Another arteriotomy was made, the vein graft was trimmed and anastomosed to it with 7-0 Prolene. This vein graft was then measured back to the left side of the ascending aorta where it was divided. Another dose of cardioplegia was given, and we positioned the heart for the LAD graft. Arteriotomy was made in the mid-to- distal LAD. The BILLY was brought out of the left chest through a notch in the pericardium over the pulmonary artery. The BILLY was opened and anastomosed to the LAD with running suture of 8-0 Prolene. The endothoracic fascia was tacked to the epicardium. Another dose of cardioplegia was given, and we positioned the heart for the PDA graft. An arteriotomy was made, the vein graft trimmed and anastomosed to it with 7-0 Prolene. Unfortunately, this portion of vein graft was not long enough to reach the ascending aorta. We, therefore, piggybacked this vein graft to the back of the vein graft going to the posterolateral branch vessel. A small venotomy was made and a venovenous anastomosis constructed with 7-0 Prolene. Another dose of cardioplegia was given and heart support was removed. We then did a visual inspection and culture of the aortic valve excrescence. An aortotomy was made, the aortic valve was inspected, the leaflets were clean and crisp, there were prominent nodules of Arantius. There was some Lambl's excrescence underneath the noncoronary cusp. A small portion of this was excised and sent for cultures that later returned negative for Gram stain of any organism. I felt this was a normal variant of a normal tricuspid aortic valve with normal coronary anatomy. We, therefore, did not remove or replace the aortic valve. The aortotomy incision was later closed in a two-layer fashion with running pledgeted suture of 5-0 Prolene. Following this, we turned our attention back toward the mitral valve. The interatrial groove of [place] was dissected. A left atriotomy was made and a Aj retractor apparatus was assembled and positioned allowing good visualization of the mitral valve. The mitral valve was inspected. There was significant vegetative matter on a flail posterior cusp, P2. This extended onto the chordae and down towards the papillary muscle. All the chords of P2 and the entire leaflet of P2 was excised. There was no evidence of abscess or infection at the annulus of the valve. Portions of P1 and P3 adjacent to P2 were excised to get a margin away from the area of infection. I was concerned that there was contamination on the anterior leaflet where the flail posterior cusp of P2 would hit the anterior leaflet. There was some fibrinous matter on the anterior leaflet. Therefore, we excised all of A1 along with its chords and preserved A2 and chordal structures. Finally, just above the anterior leaf of the mitral valve, there was some fibrinous exudate on the wall of the atrium. This was on the endocardiac tissue and some of this was excised and sent for cultures. We then irrigated the left ventricle and left atrium copiously, removed any particulate matter. We again inspected for any areas of vegetation or any concerns about the annulus. Seeing no vegetations and no evidence of annular abscess, we decided to go ahead and measure for the valve size. A 33-mm pericardial valve was selected (Magna Ease). Interrupted pledgeted sutures of 2-0 Tycron were placed circumferentially about the mitral valve annulus with the pledgets on the ventricular side. The chordal preserving technique was carried out. The valve suture was then passed through the sewing cuff of the valve prosthesis. This was lowered into Record Of Operation [facility] [address] [place]. [address] NAME: FRANCISCO JAVIER RIVAS : 50 STATUS : ADM IN PAT#: [id number] AGE: 66 ADM/REG DATE : 01/09/17 MR#: [id number] REPORT SERV DATE: 01/18/17 DICTATED BY: FRANK MCKEON DATE: 01/17/17 REPORT STATUS : Draft TRANSCRIBED BY: ELLEN DATE: 01/17/17 position, each of the sutures individually secured and divided using a Cor-Knot device. A total of 16 Cor-Knots were utilized. The valve appeared to be well seated. An LV vent was then placed through the right superior pulmonary vein and directed across the mitral valve prosthesis into the left ventricle. The left atriotomy was then closed in a two-layer fashion with running pledgeted suture of 4-0 Prolene. Then, the proximal ends of the two vein grafts were anastomosed to 4.5-mm punch aortotomies with 6-0 Prolene. The patient was placed in Trendelenburg and final dose of warm blood cardioplegia given in retrograde fashion. Ventricular and atrial pacing wires were placed. Following the last dose of cardioplegia and deairing of the aorta, the common aortic cross clamp was removed. The distal and proximal anastomoses and suture lines were all inspected and made hemostatic. Doppler demonstrated good flow through the grafts. The patient resumed a sinus rhythm and was paced atrially at a rate of 80. Ventilation was begun, and when the heart demonstrated good contractility, it was allowed to fill and eject. De-airing was monitored with SUAD. When deairing was completed, the LV vent was removed and each pursestring sutures tied and reinforced. The LV vent was likewise removed and each pursestring sutures tied. The patient was taken out of Trendelenburg. The patient was then weaned from cardiopulmonary bypass with minimal inotropic support. The venous cannula was removed and each pursestring sutures tied. SUAD examination demonstrated good ventricular function. The mitral valve prosthesis was well seated without perivalvular leak. The aortic valve had trace insufficiency. Protamine was administered by Anesthesia, and following a period of hemodynamic stability, the aortic cannula was removed and each pursestring sutures tied and reinforced. The patient continued to do well and the chest was irrigated copiously with saline. Meticulous hemostasis was obtained. Hemasorb was placed along the cut edge of the sternum. Once hemostasis was assured, the pericardium was draped over the anterior surface of the heart and tacked into position. Doppler demonstrated good flow through the grafts following protamine administration. Then, chest tubes were placed and the sternum reapproximated with 8 sternal wires. The clavipectoral fascia and linea alba closed with #1 Stratafix. The subcutaneous tissue was closed with 2-0 Stratafix and skin closed in a subcuticular fashion. The patient tolerated the procedure well. COMPLICATIONS: There were no complications. COUNTS: Sponge and needle counts were correct. DISPOSITION: The patient left intubated, sedated, and transported to the intensive care unit [facility] [address] [address] NAME: FRANCISCO JAVIER RIVAS : 50 STATUS : ADM IN [facility]#: [id number] AGE: 66 ADM/REG DATE : 01/09/17 MR#: [id number] REPORT SERV DATE: 01/18/17 DICTATED BY: FRANK MCKEON DATE: 01/17/17 REPORT STATUS : Draft TRANSCRIBED BY: ELLEN DATE: 01/17/17 in a stable condition. JERRI/ELLEN Frank Mckeon M.D. / [id number] CC: Teresita Neves M.D.
--- NOTE | ~2017-01-09 | IDS ---
Interim Discharge Summary [facility] [address] [place]. [address] NAME: FRANCISCO JAVIER RIVAS : 50 STATUS : ADM IN [facility]#: [id number] AGE: 66 ADM/REG DATE : 01/09/17 MR#: [id number] REPORT SERV DATE: 01/19/17 DICTATED BY: SERAFIN MERRITT DATE: 01/19/17 REPORT STATUS : Draft TRANSCRIBED BY: MODKesha DATE: 01/19/17 ADMISSION DATE: 01/09/2017 DISCHARGE DATE: Date of transfer to CVICU after the patient had mitral valve replacement and CABG is 01/17/2017. Date of transfer of the patient back from CVICU to [address] [place] [address] is 01/19/2017. DIAGNOSES: So far is 1. Acute endocarditis and bacteremia with Streptococcus salivarius probably secondary to a dental extraction and dental manipulation. 2. Mitral valve endocarditis from the above bacteria. 3. Status post mitral valve replacement and CABG at the same time that occurred on 01/17/2017. 4. Other diagnoses that are stable in this patient include the following. Other chronic medical problems in this patient include a history of chronic diffuse esophageal spasm causing chronic and recurrent cough in this patient. 5. History of chronic gastritis. 6. History of colonic polyps that are benign. BRIEF HOSPITAL COURSE SO FAR: Mr. Rivas is a 66-year-old male who was admitted as a direct admit from Dr. Downey' office who is his PCP. The patient was essentially admitted with signs and symptoms as described in history and physical exam. Essentially, he was admitted with bacteremia with Streptococcus salivarius after the patient underwent a dental procedure. The patient also came with mitral valve endocarditis because of this. At the same time, when the patient underwent cardiac catheterization, he was found to have diffuse coronary artery disease, necessitating a CABG. Hence, the patient underwent a CABG after he had a SUAD. This was for mitral valve replacement and also for CABG. The patient had a pericardial mitral valve placed, hence, there is probably not a need for anticoagulation as this is not a mechanical valve. The patient has been doing well so far. He has been extubated as of yesterday, and I saw him yesterday while he was still on an insulin drip. I weaned him off his insulin drip around 7 p.m. last night and also gave him long-acting insulin. Changed his Accu-Cheks to a.c. and at bedtime. The patient does not have any history of diabetes mellitus, so, he should be easy to be weaned off all insulin within the next day or two. He is doing really well so far, and has been transferred to [address] [place] [address] after the surgical procedure. One of my colleagues will be taking over care of this patient as the patient is being transferred to [address] [place] [address]. RRA/ELLEN Serafin Merritt M.D. / [id number] Interim Discharge Summary [address] [address] NAME: FRANCISCO JAVIER RIVAS : 50 STATUS : ADM IN [facility]#: [id number] AGE: 66 ADM/REG DATE : 01/09/17 MR#: [id number] REPORT SERV DATE: 01/19/17 DICTATED BY: SERAFIN MERRITT DATE: 01/19/17 REPORT STATUS : Draft TRANSCRIBED BY: ELLEN DATE: 01/19/17 CC: Serafin Merritt M.D.
[2017-01-09] MEDS ORDERED: PRILO PO (15:56)
[2017-01-09] MEDS ORDERED: Z-PAK PO (15:56)
[2017-01-09] MEDS ORDERED: AMIT10 PO (15:56)
[2017-01-09] MEDS ORDERED: [UNRECOGNIZED DRUG - OTHER] PO (15:57)
[2017-01-09 17:56] LABS: BASOPHILS 0.3 %; BASOPHILS ABSOLUTE 0.02 10/3/uL (0.0-0.16); EOSINOPHILS 1.2 %; EOSINOPHILS ABSOLUTE 0.09 10/3/uL (0.0-0.53); HEMATOCRIT 30.1 % (40.0-51.0); HEMOGLOBIN 9.9 g/dL (13.6-17.8); IMMATURE GRANULOCYTES 0.3 %; IMMATURE GRANULOCYTES ABSOLUTE 0.02 10/3/uL (0.0-0.11); LYMPHOCYTES 11.1 %; LYMPHOCYTES ABSOLUTE 0.85 10/3/uL (0.67-4.30); MEAN CORPUS HGB CONC 32.9 g/dL (32.0-36.0); MEAN CORPUSCULAR HEMOGLOB 28.4 pg (26.0-34.0); MEAN CORPUSCULAR VOLUME 86.2 fL (80-100); MEAN PLATELET VOLUME 8.9 fL (9.2-13.0); MONOCYTES 4.4 %; MONOCYTES ABSOLUTE 0.34 10/3/uL (0.21-1.20); NEUTROPHILS 82.7 %; NEUTROPHILS ABSOLUTE 6.34 10/3/uL (2.02-8.40); PLATELET COUNT 253 10/3/uL (150-400); RBC DISTRIBUTION WIDTH 14.2 % (12.0-16.0); RED CELL COUNT 3.49 10/6/uL (4.7-6.1); WHITE BLOOD CELLS 7.7 10/3/uL (4.5-10.5)
[2017-01-09 17:57] LABS: MANUAL DIFF NO %
[2017-01-09 18:21] LABS: A/G RATIO 0.7 (0.7-1.9); ALBUMIN 2.5 G/DL (3.5-5.0); ALKALINE PHOSPHATASE 116 U/L (45-117); CALCIUM, SERUM 8.8 MG/DL (8.5-10.4); CHLORIDE, SERUM 99 MMOL/L (96-112); CO2 (CARBON DIOXIDE) 28 MMOL/L (24-34); CREATININE 0.72 MG/DL (0.70-1.30); GFR AFRICAN AMERICAN 113 ML/MIN (>=60); GFR NON AFRICAN AMERICAN 97 ML/MIN (>=60); GLOBULIN 3.7 G/DL (2.5-4.1); PHOSPHORUS, SERUM 3.3 MG/DL (2.5-4.5); SGOT(AST) 18 U/L (5-40); SGPT(ALT) 17 U/L (5-65); SODIUM, SERUM 136 MMOL/L (135-148); TOTAL BILIRUBIN 0.7 MG/DL (0-1.2); TOTAL PROTEIN 6.2 G/DL (6.0-8.5)
[2017-01-09 18:21] LABS: B NATRIURETIC PEPTIDE (BNP) 69.4 PG/ML (< 100.0)
[2017-01-09 18:24] LABS: BUN (BLOOD UREA NITROGEN) 11 MG/DL (6-23); CA-19-9 < 2.0 U/ML (< 37.0); CEA 1.9 NG/ML; GLUCOSE, SERUM 87 MG/DL (60-99)
[2017-01-09 19:01] LABS: WBC (NOT ORDERED) (RFLEX) 0 (0-5)
[2017-01-09 19:16] LABS: PROCALCITONIN 0.37 ng/mL (<0.5)
[2017-01-09 19:45] LABS: INFLUENZA A SCREEN NEGATIVE (NEGATIVE); INFLUENZA B SCREEN NEGATIVE (NEGATIVE)
[2017-01-09 19:46] LABS: ASCORBIC ACID (UR NOT ORDER) NEG (NEG); BILIRUBIN, URINE NEGATIVE (NEG); KETONE, URINE NEGATIVE (NEG); LEUKOCYTE ESTERASE(NOT OR NEG (NEG)
[2017-01-09 20:29] LABS: CPK 15 U/L (0-200)
[2017-01-09 20:31] LABS: CK-MB < 0.5 NG/ML
[2017-01-09 22:12] LABS: GLYCOHEMOGLOBIN (HbA1c) 4.6 % (4.7-6.1)
[2017-01-10 01:20] LABS: HEMATOCRIT 28.4 % (40.0-51.0); HEMOGLOBIN 9.6 g/dL (13.6-17.8); MEAN CORPUS HGB CONC 33.8 g/dL (32.0-36.0); MEAN CORPUSCULAR VOLUME 85.8 fL (80-100); PLATELET COUNT 262 10/3/uL (150-400); RBC DISTRIBUTION WIDTH 14.3 % (12.0-16.0); RED CELL COUNT 3.31 10/6/uL (4.7-6.1); WHITE BLOOD CELLS 8.5 10/3/uL (4.5-10.5)
[2017-01-10 01:21] LABS: MANUAL DIFF YES %
[2017-01-10 01:41] LABS: BAND NEUTROPHILS 2 %; EOSINOPHILS 1 %; EOSINOPHILS ABSOLUTE (CALC) 0.09 10/3/uL (0.0-0.53); LYMPHOCYTES 6 %; LYMPHOCYTES ABSOLUTE (CALC) 0.51 10/3/uL (0.67-4.30); MONOCYTES 2 %; MONOCYTES ABSOLUTE (CALC) 0.17 10/3/uL (0.21-1.20); NEUTROPHILS ABSOLUTE (CALC) 7.74 10/3/uL (2.02-8.40); SEGMENTED NEUTROPHIL (0) 89 %; TOTAL NUCLEATED CELLS 100
[2017-01-10 01:50] LABS: BUN (BLOOD UREA NITROGEN) 8 MG/DL (6-23); CALCIUM, SERUM 8.6 MG/DL (8.5-10.4); CHLORIDE, SERUM 101 MMOL/L (96-112); CO2 (CARBON DIOXIDE) 26 MMOL/L (24-34); CPK 14 U/L (0-200); CREATININE 0.63 MG/DL (0.70-1.30); GFR AFRICAN AMERICAN 119 ML/MIN (>=60); GFR NON AFRICAN AMERICAN 103 ML/MIN (>=60); GLUCOSE, SERUM 101 MG/DL (60-99); PHOSPHORUS, SERUM 3.7 MG/DL (2.5-4.5); POTASSIUM, SERUM 4.2 MMOL/L (3.5-5.3); SODIUM, SERUM 137 MMOL/L (135-148)
[2017-01-10 01:51] LABS: CK-MB < 0.5 NG/ML; TROPONIN I 0.08 NG/ML (<0.05)
[2017-01-10 11:32] LABS: CK-MB < 0.5 NG/ML; CPK 18 U/L (0-200); TROPONIN I 0.06 NG/ML (<0.05)
[2017-01-11 04:36] LABS: BASOPHILS 0.5 %; BASOPHILS ABSOLUTE 0.03 10/3/uL (0.0-0.16); EOSINOPHILS 4.4 %; EOSINOPHILS ABSOLUTE 0.29 10/3/uL (0.0-0.53); HEMATOCRIT 28.4 % (40.0-51.0); HEMOGLOBIN 9.4 g/dL (13.6-17.8); IMMATURE GRANULOCYTES 0.3 %; IMMATURE GRANULOCYTES ABSOLUTE 0.02 10/3/uL (0.0-0.11); MEAN CORPUS HGB CONC 33.1 g/dL (32.0-36.0); MEAN CORPUSCULAR HEMOGLOB 28.9 pg (26.0-34.0); MEAN CORPUSCULAR VOLUME 87.4 fL (80-100); MEAN PLATELET VOLUME 9.1 fL (9.2-13.0); MONOCYTES 7.2 %; MONOCYTES ABSOLUTE 0.48 10/3/uL (0.21-1.20); NEUTROPHILS 69.6 %; NEUTROPHILS ABSOLUTE 4.64 10/3/uL (2.02-8.40); PLATELET COUNT 279 10/3/uL (150-400); RBC DISTRIBUTION WIDTH 14.4 % (12.0-16.0); RED CELL COUNT 3.25 10/6/uL (4.7-6.1); WHITE BLOOD CELLS 6.7 10/3/uL (4.5-10.5)
[2017-01-11 04:41] LABS: MANUAL DIFF NO %
[2017-01-11 04:55] LABS: BUN (BLOOD UREA NITROGEN) 10 MG/DL (6-23); CALCIUM, SERUM 8.8 MG/DL (8.5-10.4); CHLORIDE, SERUM 101 MMOL/L (96-112); CO2 (CARBON DIOXIDE) 27 MMOL/L (24-34); CREATININE 0.57 MG/DL (0.70-1.30); GFR AFRICAN AMERICAN 124 ML/MIN (>=60); GFR NON AFRICAN AMERICAN 107 ML/MIN (>=60); GLUCOSE, SERUM 110 MG/DL (60-99); PHOSPHORUS, SERUM 3.3 MG/DL (2.5-4.5); SODIUM, SERUM 137 MMOL/L (135-148)
[2017-01-12 06:53] LABS: BASOPHILS 0.7 %; BASOPHILS ABSOLUTE 0.04 10/3/uL (0.0-0.16); EOSINOPHILS 6.9 %; EOSINOPHILS ABSOLUTE 0.42 10/3/uL (0.0-0.53); HEMOGLOBIN 10.5 g/dL (13.6-17.8); IMMATURE GRANULOCYTES 0.3 %; IMMATURE GRANULOCYTES ABSOLUTE 0.02 10/3/uL (0.0-0.11); LYMPHOCYTES ABSOLUTE 1.16 10/3/uL (0.67-4.30); MEAN CORPUS HGB CONC 32.8 g/dL (32.0-36.0); MEAN CORPUSCULAR HEMOGLOB 28.8 pg (26.0-34.0); MEAN CORPUSCULAR VOLUME 87.7 fL (80-100); MONOCYTES 5.9 %; MONOCYTES ABSOLUTE 0.36 10/3/uL (0.21-1.20); NEUTROPHILS 67.2 %; NEUTROPHILS ABSOLUTE 4.09 10/3/uL (2.02-8.40); PLATELET COUNT 300 10/3/uL (150-400); RBC DISTRIBUTION WIDTH 14.3 % (12.0-16.0); RED CELL COUNT 3.65 10/6/uL (4.7-6.1); WHITE BLOOD CELLS 6.1 10/3/uL (4.5-10.5)
[2017-01-12 06:54] LABS: MANUAL DIFF NO %
[2017-01-12 07:10] LABS: BUN (BLOOD UREA NITROGEN) 10 MG/DL (6-23); CHLORIDE, SERUM 102 MMOL/L (96-112); CO2 (CARBON DIOXIDE) 28 MMOL/L (24-34); CREATININE 0.61 MG/DL (0.70-1.30); GFR AFRICAN AMERICAN 121 ML/MIN (>=60); GFR NON AFRICAN AMERICAN 104 ML/MIN (>=60); PHOSPHORUS, SERUM 3.5 MG/DL (2.5-4.5); POTASSIUM, SERUM 3.9 MMOL/L (3.5-5.3); SODIUM, SERUM 140 MMOL/L (135-148)
[2017-01-12 07:12] LABS: GLUCOSE, SERUM 85 MG/DL (60-99)
[2017-01-13 06:04] LABS: BASOPHILS 0.5 %; BASOPHILS ABSOLUTE 0.03 10/3/uL (0.0-0.16); EOSINOPHILS ABSOLUTE 0.26 10/3/uL (0.0-0.53); HEMATOCRIT 31.5 % (40.0-51.0); HEMOGLOBIN 10.4 g/dL (13.6-17.8); IMMATURE GRANULOCYTES 0.5 %; IMMATURE GRANULOCYTES ABSOLUTE 0.03 10/3/uL (0.0-0.11); LYMPHOCYTES 19.3 %; LYMPHOCYTES ABSOLUTE 1.24 10/3/uL (0.67-4.30); MEAN CORPUSCULAR VOLUME 87.7 fL (80-100); MEAN PLATELET VOLUME 8.8 fL (9.2-13.0); MONOCYTES 7.2 %; MONOCYTES ABSOLUTE 0.46 10/3/uL (0.21-1.20); NEUTROPHILS 68.5 %; PLATELET COUNT 312 10/3/uL (150-400); RBC DISTRIBUTION WIDTH 14.2 % (12.0-16.0); RED CELL COUNT 3.59 10/6/uL (4.7-6.1); WHITE BLOOD CELLS 6.4 10/3/uL (4.5-10.5)
[2017-01-13 06:05] LABS: MANUAL DIFF NO %
[2017-01-13 06:18] LABS: BUN (BLOOD UREA NITROGEN) 12 MG/DL (6-23); CALCIUM, SERUM 8.9 MG/DL (8.5-10.4); CHLORIDE, SERUM 101 MMOL/L (96-112); CO2 (CARBON DIOXIDE) 29 MMOL/L (24-34); CREATININE 0.59 MG/DL (0.70-1.30); GFR AFRICAN AMERICAN 122 ML/MIN (>=60); GFR NON AFRICAN AMERICAN 106 ML/MIN (>=60); GLUCOSE, SERUM 84 MG/DL (60-99); PHOSPHORUS, SERUM 3.6 MG/DL (2.5-4.5); POTASSIUM, SERUM 3.9 MMOL/L (3.5-5.3); SODIUM, SERUM 138 MMOL/L (135-148)
[2017-01-14 06:42] LABS: BASOPHILS 0.5 %; BASOPHILS ABSOLUTE 0.04 10/3/uL (0.0-0.16); EOSINOPHILS 3.2 %; EOSINOPHILS ABSOLUTE 0.24 10/3/uL (0.0-0.53); HEMOGLOBIN 10.8 g/dL (13.6-17.8); IMMATURE GRANULOCYTES 0.4 %; IMMATURE GRANULOCYTES ABSOLUTE 0.03 10/3/uL (0.0-0.11); LYMPHOCYTES ABSOLUTE 1.51 10/3/uL (0.67-4.30); MEAN CORPUS HGB CONC 32.7 g/dL (32.0-36.0); MEAN CORPUSCULAR HEMOGLOB 28.6 pg (26.0-34.0); MEAN CORPUSCULAR VOLUME 87.5 fL (80-100); MEAN PLATELET VOLUME 8.9 fL (9.2-13.0); MONOCYTES 6.8 %; MONOCYTES ABSOLUTE 0.51 10/3/uL (0.21-1.20); NEUTROPHILS 69.1 %; NEUTROPHILS ABSOLUTE 5.22 10/3/uL (2.02-8.40); PLATELET COUNT 346 10/3/uL (150-400); RBC DISTRIBUTION WIDTH 14.7 % (12.0-16.0); RED CELL COUNT 3.77 10/6/uL (4.7-6.1); WHITE BLOOD CELLS 7.6 10/3/uL (4.5-10.5)
[2017-01-14 06:45] LABS: MANUAL DIFF NO %
[2017-01-14 06:55] LABS: BUN (BLOOD UREA NITROGEN) 13 MG/DL (6-23); CALCIUM, SERUM 9.6 MG/DL (8.5-10.4); CHLORIDE, SERUM 99 MMOL/L (96-112); CO2 (CARBON DIOXIDE) 31 MMOL/L (24-34); CREATININE 0.74 MG/DL (0.70-1.30); GFR AFRICAN AMERICAN 111 ML/MIN (>=60); GFR NON AFRICAN AMERICAN 96 ML/MIN (>=60); GLUCOSE, SERUM 94 MG/DL (60-99); PHOSPHORUS, SERUM 3.8 MG/DL (2.5-4.5); POTASSIUM, SERUM 4.6 MMOL/L (3.5-5.3); SODIUM, SERUM 138 MMOL/L (135-148)
[2017-01-15 06:21] LABS: BASOPHILS 0.4 %; BASOPHILS ABSOLUTE 0.03 10/3/uL (0.0-0.16); EOSINOPHILS 2.9 %; EOSINOPHILS ABSOLUTE 0.23 10/3/uL (0.0-0.53); HEMATOCRIT 32.7 % (40.0-51.0); HEMOGLOBIN 10.7 g/dL (13.6-17.8); IMMATURE GRANULOCYTES 0.4 %; IMMATURE GRANULOCYTES ABSOLUTE 0.03 10/3/uL (0.0-0.11); LYMPHOCYTES 17.3 %; LYMPHOCYTES ABSOLUTE 1.37 10/3/uL (0.67-4.30); MEAN CORPUS HGB CONC 32.7 g/dL (32.0-36.0); MEAN CORPUSCULAR HEMOGLOB 28.7 pg (26.0-34.0); MEAN CORPUSCULAR VOLUME 87.7 fL (80-100); MONOCYTES 5.9 %; MONOCYTES ABSOLUTE 0.47 10/3/uL (0.21-1.20); NEUTROPHILS 73.1 %; NEUTROPHILS ABSOLUTE 5.81 10/3/uL (2.02-8.40); PLATELET COUNT 345 10/3/uL (150-400); RBC DISTRIBUTION WIDTH 15.1 % (12.0-16.0); RED CELL COUNT 3.73 10/6/uL (4.7-6.1); WHITE BLOOD CELLS 7.9 10/3/uL (4.5-10.5)
[2017-01-15 06:28] LABS: MANUAL DIFF NO %
[2017-01-15 06:29] LABS: BUN (BLOOD UREA NITROGEN) 15 MG/DL (6-23); CALCIUM, SERUM 9.4 MG/DL (8.5-10.4); CHLORIDE, SERUM 99 MMOL/L (96-112); CHOLESTEROL 176 MG/DL (< 200); CO2 (CARBON DIOXIDE) 29 MMOL/L (24-34); CREATININE 0.77 MG/DL (0.70-1.30); GFR AFRICAN AMERICAN 110 ML/MIN (>=60); GFR NON AFRICAN AMERICAN 95 ML/MIN (>=60); GLUCOSE, SERUM 101 MG/DL (60-99); HDL CHOLESTEROL 44 MG/DL (> 39); LDL CHOLESTEROL 108 MG/DL (< 130); NON-HDL CHOLESTEROL 132 MG/DL (< 160); PHOSPHORUS, SERUM 3.8 MG/DL (2.5-4.5); POTASSIUM, SERUM 4.2 MMOL/L (3.5-5.3); SODIUM, SERUM 137 MMOL/L (135-148); TRIGLYCERIDE 120 MG/DL (< 150)
[2017-01-15 20:59] LABS: ASCORBIC ACID (UR NOT ORDER) NEG (NEG); BILIRUBIN, URINE NEGATIVE (NEG); KETONE, URINE NEGATIVE (NEG); LEUKOCYTE ESTERASE(NOT OR NEG (NEG); WBC (NOT ORDERED) (RFLEX) 1 (0-5)
[2017-01-16 06:39] LABS: BASOPHILS 0.7 %; BASOPHILS ABSOLUTE 0.05 10/3/uL (0.0-0.16); EOSINOPHILS 3.2 %; EOSINOPHILS ABSOLUTE 0.23 10/3/uL (0.0-0.53); HEMOGLOBIN 10.3 g/dL (13.6-17.8); IMMATURE GRANULOCYTES 0.3 %; IMMATURE GRANULOCYTES ABSOLUTE 0.02 10/3/uL (0.0-0.11); LYMPHOCYTES ABSOLUTE 1.16 10/3/uL (0.67-4.30); MEAN CORPUS HGB CONC 33.2 g/dL (32.0-36.0); MEAN CORPUSCULAR HEMOGLOB 29.2 pg (26.0-34.0); MEAN CORPUSCULAR VOLUME 87.8 fL (80-100); MEAN PLATELET VOLUME 8.7 fL (9.2-13.0); MONOCYTES 6.5 %; MONOCYTES ABSOLUTE 0.47 10/3/uL (0.21-1.20); NEUTROPHILS 73.3 %; NEUTROPHILS ABSOLUTE 5.31 10/3/uL (2.02-8.40); PLATELET COUNT 307 10/3/uL (150-400); RED CELL COUNT 3.53 10/6/uL (4.7-6.1); WHITE BLOOD CELLS 7.2 10/3/uL (4.5-10.5)
[2017-01-16 06:42] LABS: MANUAL DIFF NO %
[2017-01-16 06:51] LABS: BUN (BLOOD UREA NITROGEN) 14 MG/DL (6-23); CHLORIDE, SERUM 100 MMOL/L (96-112); CO2 (CARBON DIOXIDE) 28 MMOL/L (24-34); CREATININE 0.62 MG/DL (0.70-1.30); GFR AFRICAN AMERICAN 120 ML/MIN (>=60); GFR NON AFRICAN AMERICAN 103 ML/MIN (>=60); GLUCOSE, SERUM 86 MG/DL (60-99); PHOSPHORUS, SERUM 3.3 MG/DL (2.5-4.5); SODIUM, SERUM 138 MMOL/L (135-148)
[2017-01-17 05:39] LABS: BASOPHILS 0.6 %; BASOPHILS ABSOLUTE 0.05 10/3/uL (0.0-0.16); EOSINOPHILS ABSOLUTE 0.25 10/3/uL (0.0-0.53); HEMATOCRIT 30.3 % (40.0-51.0); HEMOGLOBIN 10.1 g/dL (13.6-17.8); IMMATURE GRANULOCYTES 0.4 %; IMMATURE GRANULOCYTES ABSOLUTE 0.03 10/3/uL (0.0-0.11); LYMPHOCYTES 16.7 %; LYMPHOCYTES ABSOLUTE 1.39 10/3/uL (0.67-4.30); MEAN CORPUS HGB CONC 33.3 g/dL (32.0-36.0); MEAN CORPUSCULAR HEMOGLOB 28.9 pg (26.0-34.0); MEAN CORPUSCULAR VOLUME 86.6 fL (80-100); MEAN PLATELET VOLUME 8.7 fL (9.2-13.0); MONOCYTES 7.2 %; NEUTROPHILS 72.1 %; NEUTROPHILS ABSOLUTE 5.98 10/3/uL (2.02-8.40); PLATELET COUNT 311 10/3/uL (150-400); RBC DISTRIBUTION WIDTH 15.4 % (12.0-16.0); WHITE BLOOD CELLS 8.3 10/3/uL (4.5-10.5)
[2017-01-17 05:46] LABS: MANUAL DIFF NO %
[2017-01-17 05:55] LABS: INTERNATIONAL NORMAL RATI 1.1 UNITS (-); PROTIME (NOT ORD) 14.3 SEC (12.0-14.5)
[2017-01-17 05:59] LABS: % IRON SAT 16 % (20-50); A/G RATIO 0.6 (0.7-1.9); ALBUMIN 2.5 G/DL (3.5-5.0); ALKALINE PHOSPHATASE 104 U/L (45-117); BUN (BLOOD UREA NITROGEN) 13 MG/DL (6-23); CALCIUM, SERUM 8.9 MG/DL (8.5-10.4); CHLORIDE, SERUM 102 MMOL/L (96-112); CO2 (CARBON DIOXIDE) 27 MMOL/L (24-34); CREATININE 0.73 MG/DL (0.70-1.30); GFR AFRICAN AMERICAN 112 ML/MIN (>=60); GFR NON AFRICAN AMERICAN 97 ML/MIN (>=60); GLUCOSE, SERUM 91 MG/DL (60-99); IRON BINDING CAPACITY 176 MCG/DL (250-450); IRON, SERUM 29 MCG/DL (35-150); PHOSPHORUS, SERUM 3.4 MG/DL (2.5-4.5); POTASSIUM, SERUM 4.1 MMOL/L (3.5-5.3); SGOT(AST) 25 U/L (5-40); SGPT(ALT) 32 U/L (5-65); SODIUM, SERUM 137 MMOL/L (135-148); TOTAL BILIRUBIN 0.4 MG/DL (0-1.2); TOTAL PROTEIN 6.5 G/DL (6.0-8.5)
[2017-01-17 18:47] LABS: BE (BASE EXCESS) -3.3 MEQ/L (0 +/- 2.5); CARBOXYHEMOGLOBIN 0.3 % (0-3); HCO3 (ACTUAL BICARBONATE) 21.9 MEQ/L (23-27); HEMOBLOGIN CONTENT 10.2 G/DL (14-18); INSTRUMENT SERIAL # 11843; METHEMOGLOBIN 0.7 % (0-3); MODE SIMV; O2 CONTENT 14.6 VOL% (18-24); OPERATOR ID 18642; PCO2 (CO2 TENSION) 40 MMHG (35-45); PO2 (O2 TENSION) 234 MMHG (79-93); PRESSURE SUPPORT 0 cm.H2O; SAMPLE Arterial; TIDAL VOLUME 600 ML; pH 7.36 (7.37-7.43)
[2017-01-17 19:07] LABS: HEMATOCRIT 28.1 % (40.0-51.0); HEMOGLOBIN 9.4 g/dL (13.6-17.8); PLATELET COUNT 230 10/3/uL (150-400)
[2017-01-17 19:19] LABS: BUN (BLOOD UREA NITROGEN) 14 MG/DL (6-23); CALCIUM, SERUM 9.2 MG/DL (8.5-10.4); CHLORIDE, SERUM 111 MMOL/L (96-112); CO2 (CARBON DIOXIDE) 25 MMOL/L (24-34); CREATININE 0.84 MG/DL (0.70-1.30); GFR AFRICAN AMERICAN 106 ML/MIN (>=60); GFR NON AFRICAN AMERICAN 91 ML/MIN (>=60); GLUCOSE, SERUM 91 MG/DL (60-99); POTASSIUM, SERUM 3.5 MMOL/L (3.5-5.3)
[2017-01-17 19:21] LABS: INTERNATIONAL NORMAL RATI 1.5 UNITS (-); PROTIME (NOT ORD) 17.6 SEC (12.0-14.5); SODIUM, SERUM 146 MMOL/L (135-148)
[2017-01-17 19:22] LABS: PARTIAL THROMBO TIME 75.6 SEC (22.5-37.2)
[2017-01-18 01:47] LABS: BE (BASE EXCESS) -2.5 MEQ/L (0 +/- 2.5); CARBOXYHEMOGLOBIN 0.3 % (0-3); DEVICE NC; HCO3 (ACTUAL BICARBONATE) 21.7 MEQ/L (23-27); HEMOBLOGIN CONTENT 9.1 G/DL (14-18); INSTRUMENT SERIAL # 11843; METHEMOGLOBIN 0.7 % (0-3); O2 CONTENT 12.6 VOL% (18-24); OPERATOR ID 13744; PCO2 (CO2 TENSION) 35 MMHG (35-45); PO2 (O2 TENSION) 121 MMHG (79-93); SAMPLE Arterial; pH 7.41 (7.37-7.43)
[2017-01-18 01:48] LABS: HEMATOCRIT 26.2 % (40.0-51.0); HEMOGLOBIN 8.6 g/dL (13.6-17.8)
[2017-01-18 01:59] LABS: BUN (BLOOD UREA NITROGEN) 17 MG/DL (6-23); CALCIUM, SERUM 8.5 MG/DL (8.5-10.4); CHLORIDE, SERUM 113 MMOL/L (96-112); CO2 (CARBON DIOXIDE) 23 MMOL/L (24-34); CREATININE 0.83 MG/DL (0.70-1.30); GFR AFRICAN AMERICAN 106 ML/MIN (>=60); GFR NON AFRICAN AMERICAN 92 ML/MIN (>=60); GLUCOSE, SERUM 107 MG/DL (60-99); SODIUM, SERUM 145 MMOL/L (135-148)
[2017-01-18 02:01] LABS: POTASSIUM, SERUM 4.7 MMOL/L (3.5-5.3)
[2017-01-18 04:30] LABS: BASOPHILS 0.1 %; BASOPHILS ABSOLUTE 0.01 10/3/uL (0.0-0.16); EOSINOPHILS 0.1 %; EOSINOPHILS ABSOLUTE 0.01 10/3/uL (0.0-0.53); HEMATOCRIT 25.5 % (40.0-51.0); HEMOGLOBIN 8.5 g/dL (13.6-17.8); IMMATURE GRANULOCYTES 0.3 %; IMMATURE GRANULOCYTES ABSOLUTE 0.05 10/3/uL (0.0-0.11); LYMPHOCYTES 4.3 %; LYMPHOCYTES ABSOLUTE 0.69 10/3/uL (0.67-4.30); MEAN CORPUS HGB CONC 33.3 g/dL (32.0-36.0); MEAN CORPUSCULAR HEMOGLOB 29.3 pg (26.0-34.0); MEAN CORPUSCULAR VOLUME 87.9 fL (80-100); MEAN PLATELET VOLUME 8.9 fL (9.2-13.0); MONOCYTES 2.7 %; MONOCYTES ABSOLUTE 0.43 10/3/uL (0.21-1.20); NEUTROPHILS 92.5 %; NEUTROPHILS ABSOLUTE 14.82 10/3/uL (2.02-8.40); PLATELET COUNT 185 10/3/uL (150-400); RBC DISTRIBUTION WIDTH 15.3 % (12.0-16.0)
[2017-01-18 04:33] LABS: INTERNATIONAL NORMAL RATI 1.3 UNITS (-); MANUAL DIFF NO %; PROTIME (NOT ORD) 16.3 SEC (12.0-14.5)
[2017-01-18 04:52] LABS: BUN (BLOOD UREA NITROGEN) 16 MG/DL (6-23); CALCIUM, SERUM 8.9 MG/DL (8.5-10.4); CHLORIDE, SERUM 112 MMOL/L (96-112); CO2 (CARBON DIOXIDE) 24 MMOL/L (24-34); CREATININE 0.75 MG/DL (0.70-1.30); GFR AFRICAN AMERICAN 111 ML/MIN (>=60); GFR NON AFRICAN AMERICAN 96 ML/MIN (>=60); GLUCOSE, SERUM 98 MG/DL (60-99); PHOSPHORUS, SERUM 3.4 MG/DL (2.5-4.5); POTASSIUM, SERUM 4.6 MMOL/L (3.5-5.3); SODIUM, SERUM 146 MMOL/L (135-148)
[2017-01-18 16:59] LABS: HEMOGLOBIN 7.4 g/dL (13.6-17.8)
[2017-01-18 17:05] LABS: HEMATOCRIT 22.4 % (40.0-51.0)
[2017-01-18 17:13] LABS: POTASSIUM, SERUM 4.1 MMOL/L (3.5-5.3)
[2017-01-19 05:00] LABS: BASOPHILS 0.1 %; BASOPHILS ABSOLUTE 0.01 10/3/uL (0.0-0.16); EOSINOPHILS 0 %; HEMATOCRIT 22.8 % (40.0-51.0); HEMOGLOBIN 7.4 g/dL (13.6-17.8); IMMATURE GRANULOCYTES 0.5 %; IMMATURE GRANULOCYTES ABSOLUTE 0.09 10/3/uL (0.0-0.11); LYMPHOCYTES 4.8 %; LYMPHOCYTES ABSOLUTE 0.96 10/3/uL (0.67-4.30); MEAN CORPUS HGB CONC 32.5 g/dL (32.0-36.0); MEAN CORPUSCULAR HEMOGLOB 29.2 pg (26.0-34.0); MEAN CORPUSCULAR VOLUME 90.1 fL (80-100); MEAN PLATELET VOLUME 9.5 fL (9.2-13.0); MONOCYTES 5.3 %; MONOCYTES ABSOLUTE 1.06 10/3/uL (0.21-1.20); NEUTROPHILS 89.3 %; NEUTROPHILS ABSOLUTE 17.73 10/3/uL (2.02-8.40); PLATELET COUNT 191 10/3/uL (150-400); RBC DISTRIBUTION WIDTH 15.7 % (12.0-16.0); RED CELL COUNT 2.53 10/6/uL (4.7-6.1); WHITE BLOOD CELLS 19.9 10/3/uL (4.5-10.5)
[2017-01-19 05:02] LABS: MANUAL DIFF NO %
[2017-01-19 05:23] LABS: BUN (BLOOD UREA NITROGEN) 19 MG/DL (6-23); CALCIUM, SERUM 8.8 MG/DL (8.5-10.4); CHLORIDE, SERUM 104 MMOL/L (96-112); CO2 (CARBON DIOXIDE) 26 MMOL/L (24-34); GFR AFRICAN AMERICAN 114 ML/MIN (>=60); GFR NON AFRICAN AMERICAN 98 ML/MIN (>=60); GLUCOSE, SERUM 99 MG/DL (60-99); PHOSPHORUS, SERUM 3.7 MG/DL (2.5-4.5); POTASSIUM, SERUM 4.7 MMOL/L (3.5-5.3); SODIUM, SERUM 140 MMOL/L (135-148)
[2017-01-20 04:25] LABS: BASOPHILS 0.2 %; BASOPHILS ABSOLUTE 0.02 10/3/uL (0.0-0.16); EOSINOPHILS 0.5 %; EOSINOPHILS ABSOLUTE 0.05 10/3/uL (0.0-0.53); HEMATOCRIT 23.5 % (40.0-51.0); HEMOGLOBIN 7.7 g/dL (13.6-17.8); IMMATURE GRANULOCYTES 0.3 %; IMMATURE GRANULOCYTES ABSOLUTE 0.03 10/3/uL (0.0-0.11); LYMPHOCYTES ABSOLUTE 1.21 10/3/uL (0.67-4.30); MEAN CORPUS HGB CONC 32.8 g/dL (32.0-36.0); MEAN CORPUSCULAR HEMOGLOB 29.5 pg (26.0-34.0); MEAN PLATELET VOLUME 9.6 fL (9.2-13.0); MONOCYTES 5.7 %; MONOCYTES ABSOLUTE 0.53 10/3/uL (0.21-1.20); NEUTROPHILS 80.3 %; NEUTROPHILS ABSOLUTE 7.44 10/3/uL (2.02-8.40); PLATELET COUNT 177 10/3/uL (150-400); RED CELL COUNT 2.61 10/6/uL (4.7-6.1)
[2017-01-20 04:26] LABS: MANUAL DIFF NO %; WHITE BLOOD CELLS 9.3 10/3/uL (4.5-10.5)
[2017-01-20 04:36] LABS: BUN (BLOOD UREA NITROGEN) 20 MG/DL (6-23); CALCIUM, SERUM 8.6 MG/DL (8.5-10.4); CHLORIDE, SERUM 103 MMOL/L (96-112); CO2 (CARBON DIOXIDE) 25 MMOL/L (24-34); GFR AFRICAN AMERICAN 121 ML/MIN (>=60); GFR NON AFRICAN AMERICAN 105 ML/MIN (>=60); GLUCOSE, SERUM 102 MG/DL (60-99); SODIUM, SERUM 140 MMOL/L (135-148)
[2017-01-20 04:39] LABS: INTERNATIONAL NORMAL RATI 1.2 UNITS (-); PROTIME (NOT ORD) 15.4 SEC (12.0-14.5)
[2017-01-21 05:17] LABS: BASOPHILS 0.3 %; BASOPHILS ABSOLUTE 0.02 10/3/uL (0.0-0.16); EOSINOPHILS 1.2 %; EOSINOPHILS ABSOLUTE 0.08 10/3/uL (0.0-0.53); HEMATOCRIT 23.2 % (40.0-51.0); HEMOGLOBIN 7.7 g/dL (13.6-17.8); IMMATURE GRANULOCYTES 0.3 %; IMMATURE GRANULOCYTES ABSOLUTE 0.02 10/3/uL (0.0-0.11); LYMPHOCYTES 16.5 %; LYMPHOCYTES ABSOLUTE 1.15 10/3/uL (0.67-4.30); MEAN CORPUS HGB CONC 33.2 g/dL (32.0-36.0); MEAN CORPUSCULAR HEMOGLOB 29.3 pg (26.0-34.0); MEAN CORPUSCULAR VOLUME 88.2 fL (80-100); MEAN PLATELET VOLUME 9.2 fL (9.2-13.0); MONOCYTES 7.1 %; MONOCYTES ABSOLUTE 0.49 10/3/uL (0.21-1.20); NEUTROPHILS 74.6 %; NEUTROPHILS ABSOLUTE 5.19 10/3/uL (2.02-8.40); PLATELET COUNT 165 10/3/uL (150-400); RBC DISTRIBUTION WIDTH 15.9 % (12.0-16.0); RED CELL COUNT 2.63 10/6/uL (4.7-6.1)
[2017-01-21 05:20] LABS: MANUAL DIFF NO %
[2017-01-21 05:22] LABS: CALCIUM, SERUM 8.2 MG/DL (8.5-10.4); CHLORIDE, SERUM 104 MMOL/L (96-112); CO2 (CARBON DIOXIDE) 27 MMOL/L (24-34); CREATININE 0.56 MG/DL (0.70-1.30); GFR AFRICAN AMERICAN 125 ML/MIN (>=60); GFR NON AFRICAN AMERICAN 108 ML/MIN (>=60); GLUCOSE, SERUM 95 MG/DL (60-99); INTERNATIONAL NORMAL RATI 2.1 UNITS (-); PHOSPHORUS, SERUM 2.6 MG/DL (2.5-4.5); POTASSIUM, SERUM 3.6 MMOL/L (3.5-5.3); SODIUM, SERUM 142 MMOL/L (135-148)
[2017-01-21 05:23] LABS: BUN (BLOOD UREA NITROGEN) 13 MG/DL (6-23)
[2017-01-21 05:26] LABS: PROTIME (NOT ORD) 23.1 SEC (12.0-14.5)
[2017-01-22 05:51] LABS: BASOPHILS 0.6 %; BASOPHILS ABSOLUTE 0.04 10/3/uL (0.0-0.16); EOSINOPHILS ABSOLUTE 0.34 10/3/uL (0.0-0.53); HEMATOCRIT 25.4 % (40.0-51.0); HEMOGLOBIN 8.3 g/dL (13.6-17.8); IMMATURE GRANULOCYTES 0.4 %; IMMATURE GRANULOCYTES ABSOLUTE 0.03 10/3/uL (0.0-0.11); LYMPHOCYTES 19.3 %; LYMPHOCYTES ABSOLUTE 1.31 10/3/uL (0.67-4.30); MEAN CORPUS HGB CONC 32.7 g/dL (32.0-36.0); MEAN CORPUSCULAR HEMOGLOB 29.1 pg (26.0-34.0); MEAN CORPUSCULAR VOLUME 89.1 fL (80-100); MEAN PLATELET VOLUME 9.5 fL (9.2-13.0); MONOCYTES 9.7 %; MONOCYTES ABSOLUTE 0.66 10/3/uL (0.21-1.20); NEUTROPHILS ABSOLUTE 4.42 10/3/uL (2.02-8.40); RBC DISTRIBUTION WIDTH 16.2 % (12.0-16.0); RED CELL COUNT 2.85 10/6/uL (4.7-6.1); WHITE BLOOD CELLS 6.8 10/3/uL (4.5-10.5)
[2017-01-22 05:59] LABS: INTERNATIONAL NORMAL RATI 2.2 UNITS (-); PROTIME (NOT ORD) 24.5 SEC (12.0-14.5)
[2017-01-22 06:00] LABS: MANUAL DIFF NO %; PLATELET COUNT 244 10/3/uL (150-400)
[2017-01-22 06:03] LABS: CALCIUM, SERUM 8.6 MG/DL (8.5-10.4); CHLORIDE, SERUM 105 MMOL/L (96-112); CO2 (CARBON DIOXIDE) 26 MMOL/L (24-34); CREATININE 0.54 MG/DL (0.70-1.30); GFR AFRICAN AMERICAN 127 ML/MIN (>=60); GFR NON AFRICAN AMERICAN 109 ML/MIN (>=60); GLUCOSE, SERUM 87 MG/DL (60-99); PHOSPHORUS, SERUM 3.2 MG/DL (2.5-4.5); POTASSIUM, SERUM 3.8 MMOL/L (3.5-5.3); SODIUM, SERUM 142 MMOL/L (135-148)
[2017-01-22 06:04] LABS: BUN (BLOOD UREA NITROGEN) 9 MG/DL (6-23)
[2017-01-23 06:17] LABS: BASOPHILS 0.9 %; BASOPHILS ABSOLUTE 0.07 10/3/uL (0.0-0.16); EOSINOPHILS 7.6 %; EOSINOPHILS ABSOLUTE 0.58 10/3/uL (0.0-0.53); HEMATOCRIT 27.8 % (40.0-51.0); HEMOGLOBIN 9.1 g/dL (13.6-17.8); IMMATURE GRANULOCYTES 0.7 %; IMMATURE GRANULOCYTES ABSOLUTE 0.05 10/3/uL (0.0-0.11); LYMPHOCYTES 19.4 %; LYMPHOCYTES ABSOLUTE 1.49 10/3/uL (0.67-4.30); MANUAL DIFF NO %; MEAN CORPUS HGB CONC 32.7 g/dL (32.0-36.0); MEAN CORPUSCULAR HEMOGLOB 29.3 pg (26.0-34.0); MEAN CORPUSCULAR VOLUME 89.4 fL (80-100); MEAN PLATELET VOLUME 9.1 fL (9.2-13.0); MONOCYTES 8.6 %; MONOCYTES ABSOLUTE 0.66 10/3/uL (0.21-1.20); NEUTROPHILS 62.8 %; NEUTROPHILS ABSOLUTE 4.82 10/3/uL (2.02-8.40); PLATELET COUNT 277 10/3/uL (150-400); RBC DISTRIBUTION WIDTH 16.5 % (12.0-16.0); RED CELL COUNT 3.11 10/6/uL (4.7-6.1); WHITE BLOOD CELLS 7.7 10/3/uL (4.5-10.5)
[2017-01-23 06:26] LABS: INTERNATIONAL NORMAL RATI 2.6 UNITS (-); PROTIME (NOT ORD) 27.2 SEC (12.0-14.5)
[2017-01-23 06:34] LABS: BUN (BLOOD UREA NITROGEN) 11 MG/DL (6-23); CALCIUM, SERUM 8.3 MG/DL (8.5-10.4); CHLORIDE, SERUM 103 MMOL/L (96-112); CO2 (CARBON DIOXIDE) 26 MMOL/L (24-34); CREATININE 0.56 MG/DL (0.70-1.30); GFR AFRICAN AMERICAN 125 ML/MIN (>=60); GFR NON AFRICAN AMERICAN 108 ML/MIN (>=60); GLUCOSE, SERUM 85 MG/DL (60-99); PHOSPHORUS, SERUM 3.7 MG/DL (2.5-4.5); POTASSIUM, SERUM 3.8 MMOL/L (3.5-5.3); SODIUM, SERUM 141 MMOL/L (135-148)
== END 2017-01-23 16:52 | DRG 216 ==
LOC: 6NO 15:23 → CVICU 01-17 17:51 → 5NO 01-18 17:55
PROVIDERS: Internal Medicine; Internal Medicine Cardiovascular Disease; Nurse Practitioner Family; Oral & Maxillofacial Surgery; Thoracic Surgery (Cardiothoracic Vascular Surgery)
PROC: 4A023N7 Measurement of Cardiac Sampling and Pressure, Left Heart, Percutaneous Approach (ICD-10-PCS; 2017-01-13)
PROC: 02RG08Z Replacement of Mitral Valve with Zooplastic Tissue, Open Approach (ICD-10-PCS; 2017-01-13)
PROC: B2111ZZ Fluoroscopy of Multiple Coronary Arteries using Low Osmolar Contrast (ICD-10-PCS; 2017-01-13)
PROC: 02100Z9 Bypass Coronary Artery, One Artery from Left Internal Mammary, Open Approach (ICD-10-PCS; 2017-01-13)
PROC: B2151ZZ Fluoroscopy of Left Heart using Low Osmolar Contrast (ICD-10-PCS; 2017-01-13)
PROC: 0CDXXZ0 Extraction of Lower Tooth, Single, External Approach (ICD-10-PCS; principal; 2017-01-13 10:45)
PROC: 021209W Bypass Coronary Artery, Three Arteries from Aorta with Autologous Venous Tissue, Open Approach (ICD-10-PCS; 2017-01-17)
PROC: 06BP0ZZ Excision of Right Saphenous Vein, Open Approach (ICD-10-PCS; 2017-01-17)
PROC: 5A1221Z Performance of Cardiac Output, Continuous (ICD-10-PCS; 2017-01-17)
PROC: B246ZZ4 Ultrasonography of Right and Left Heart, Transesophageal (ICD-10-PCS; 2017-01-17)
PROC: 02HV33Z Insertion of Infusion Device into Superior Vena Cava, Percutaneous Approach (ICD-10-PCS; 2017-01-22)
PROC: 4A02X4A Measurement of Cardiac Electrical Activity, Guidance, External Approach (ICD-10-PCS; 2017-01-22)
DX: I33.0 Acute and subacute infective endocarditis (principal); E43 Unspecified severe protein-calorie malnutrition; D62 Acute posthemorrhagic anemia; B95.4 Other streptococcus as the cause of diseases classified elsewhere; K59.00 Constipation, unspecified; Z90.49 Acquired absence of other specified parts of digestive tract; Z98.890 Other specified postprocedural states; Z88.2 Allergy status to sulfonamides; Z79.899 Other long term (current) drug therapy; I10 Essential (primary) hypertension; K05.6 Periodontal disease, unspecified; Z68.21 Body mass index [BMI] 21.0-21.9, adult; K05.10 Chronic gingivitis, plaque induced; K04.7 Periapical abscess without sinus; I25.10 Atherosclerotic heart disease of native coronary artery without angina pectoris; E86.0 Dehydration; J11.1 Influenza due to unidentified influenza virus with other respiratory manifestations
CPT/HCPCS: 31720; 36415; 36569; 70450; 70487; 70551; 71010; 71020; 71260; 74160; 76376; 80048; 80053; 80061; 80202; 81001; 82330; 82378; 82550; 82553; 82565; 82803; 82805; 82947; 82962; 83036; 83540; 83550; 83605; 83735; 83880; 84100; 84132; 84145; 84295; 84443; 84484; 85014; 85018; 85025; 85049; 85347; 85610; 85730; 86301; 86850; 86900; 86901; 86920; 87015; 87040; 87070; 87075; 87077; 87102; 87116; 87150; 87186; 87205; 87449; 87641; 87804; 88304; 88305; 92610-GN; 93005; 93306; 93312; 93320; 93325; 93458; 93880; 93975; 94002; 94640; 94660; 94770; 97162-GP; 97165-GO; 97530-GP; 99152; 99153; 99284; A9270-GY; C1713; C1751; C1769; C1887; C1894; G8987-CJ-GO; G8988-CJ-GO; G8989-CJ-GO; G8996-CI-GN; G8997-CI-GN; G8998-CI-GN; J0690; J1644; J2150; J2250; J2370; J2440; J2720; J2795; J2930; J3010; J3370; J3475; J3480; P9045; P9047; Q9967